=== PATIENT | female | born 1970 | race Caucasian/White ===

== ENCOUNTER 2019-01-21 14:55 | Inpatient (IN) | payer OTHER ==
--- NOTE | 2019-01-21 15:58 | ED ---
General Adult HPI - General Chief complaint: Arrhythmia/Palpitations Stated complaint: Palpitations Time Seen by Provider: 01/21/19 15:17 Source: EMS, RN notes reviewed Mode of arrival: EMS Limitations: no limitations - History of Present Illness Initial comments: Patient is a pleasant 48-year-old female presenting to the emergency Department with complaints of palpitations. Onset of symptoms was just prior to arrival. Patient felt her heart was racing. Patient has had some increased anxiety lately. Patient does have recent of family members. Patient states there may have been some mild associated dyspnea. EMS found patient to be in SVT and gave 6 mg of adenosine with conversion to sinus rhythm. Patient states she has been symptom-free since that time and remained symptom-free. Patient was symptom-free prior to onset of symptoms. - Related Data Home Medications Medication Instructions Recorded Confirmed Insulin Glargine,Hum.rec.anlog 15 unit SQ HS PRN 01/21/19 01/21/19 [Basaglar Kwikpen U-100] metFORMIN HCL 1,000 mg PO BID 01/21/19 01/21/19 Allergies Allergy/AdvReac Type Severity Reaction Status Date / Time No Known Allergies Allergy Verified 01/21/19 15:52 Review of Systems ROS Statement: Those systems with pertinent positive or pertinent negative responses have been documented in the HPI. ROS Other: All systems not noted in ROS Statement are negative. Constitutional: Denies: fever Eyes: Denies: eye pain ENT: Denies: ear pain Respiratory: Denies: cough Cardiovascular: Reports: palpitations. Denies: chest pain Endocrine: Denies: fatigue Gastrointestinal: Denies: abdominal pain Genitourinary: Denies: dysuria Musculoskeletal: Denies: back pain Skin: Denies: rash Neurological: Denies: weakness Past Medical History Past Medical History: Diabetes Mellitus, Hyperlipidemia History of Any Multi-Drug Resistant Organisms: MRSA Date of last positivie culture/infection: 2010 MDRO Source:: arm Past Surgical History: Section, Tubal Ligation Additional Past Surgical History / Comment(s): c/s x 3 Past Anesthesia/Blood Transfusion Reactions: No Reported Reaction Past Psychological History: No Psychological Hx Reported Smoking Status: Current every day smoker Past Alcohol Use History: None Reported Past Drug Use History: Marijuana - Past Family History Sister(s) Family Medical History: Cancer Father Family Medical History: Cancer General Exam Limitations: no limitations General appearance: alert, in no apparent distress Head exam: Present: atraumatic Eye exam: Present: normal appearance, PERRL ENT exam: Present: normal oropharynx Neck exam: Present: normal inspection Respiratory exam: Present: normal lung sounds bilaterally Cardiovascular Exam: Present: regular rate, normal rhythm, normal heart sounds. Absent: systolic murmur Expanded Peripheral pulses: 2+: Radial (R), Radial (L), Dorsalis Pedis (R), Dorsalis Pedis (L) GI/Abdominal exam: Present: soft. Absent: tenderness Extremities exam: Present: normal inspection. Absent: pedal edema, calf tenderness Neurological exam: Present: alert Psychiatric exam: Present: normal affect, normal mood Skin exam: Present: normal color Course Vital Signs 01/21/19 01/21/19 01/21/19 15:00 15:01 15:30 Temperature 98 F Pulse Rate 96 97 Respiratory 20 12 Rate Blood Pressure 116/79 116/79 116/79 O2 Sat by Pulse 95 97 Oximetry 01/21/19 01/21/19 01/21/19 16:00 16:30 17:00 Temperature Pulse Rate 89 86 84 Respiratory 8 L 16 14 Rate Blood Pressure 143/85 89/56 O2 Sat by Pulse 97 98 Oximetry - Reevaluation(s) Reevaluation #1: 01/21/19 16:14 Repeat EKG at 69 shows sinus rhythm at 87. [place] 162. QRS 140. QTc 436. QTc 524. Left axis. Right bundle branch block. No acute ST change. EKG Findings - EKG Comments: EKG Findings:: Normal sinus rhythm 96. IL 176. QRS 138. QT 414. QTC 523. Left axis. Right bundle-branch block. No acute ST change. Medical Decision Making - Medical Decision Making Patient reevaluated and resting comfortably in bed. Case was discussed with cardiology, Dr. Branch secondary to QTC prolongation. He does recommend admitting for observation and evaluation. Case was also discussed with Dr. Mullins, who will admit current for hospital call. - Lab Data Result diagrams: 01/21/19 15:18 01/21/19 15:18 Lab Results 01/21/19 01/21/19 01/21/19 Range/Units 15:18 15:18 15:18 WBC 10.4 (3.8-10.6) k/uL RBC 4.51 (3.80-5.40) m/uL Hgb 13.9 (11.4-16.0) gm/dL Hct 41.3 (34.0-46.0) % MCV 91.6 (80.0-100.0) fL MCH 30.9 (25.0-35.0) pg MCHC 33.7 (31.0-37.0) g/dL RDW 14.4 (11.5-15.5) % Plt Count 310 (150-450) k/uL Neutrophils % (Manual) 61 % Lymphocytes % (Manual) 32 % Monocytes % (Manual) 5 % Eosinophils % (Manual) 1 % Basophils % (Manual) 1 % Neutrophils # (Manual) 6.34 (1.3-7.7) k/uL Lymphocytes # (Manual) 3.33 (1.0-4.8) k/uL Monocytes # (Manual) 0.52 (0-1.0) k/uL Eosinophils # (Manual) 0.10 (0-0.7) k/uL Basophils # (Manual) 0.10 (0-0.2) k/uL Nucleated RBCs 0 (0-0) /100 WBC Manual Slide Review Performed PT 9.4 (9.0-12.0) sec INR 0.8 (<1.2) APTT 24.0 (22.0-30.0) sec Sodium 140 (137-145) mmol/L Potassium 4.2 (3.5-5.1) mmol/L Chloride 109 H (98-107) mmol/L Carbon Dioxide 21 L (22-30) mmol/L Anion Gap 10 mmol/L BUN 20 H (7-17) mg/dL Creatinine 0.65 (0.52-1.04) mg/dL Est GFR (CKD-EPI)AfAm >90 (>60 ml/min/1.73 sqM) Est GFR (CKD-EPI)NonAf >90 (>60 ml/min/1.73 sqM) Glucose 76 (74-99) mg/dL Calcium 8.7 (8.4-10.2) mg/dL Magnesium 1.9 (1.6-2.3) mg/dL Total Bilirubin 0.5 (0.2-1.3) mg/dL AST 45 H (14-36) U/L ALT 36 (9-52) U/L Alkaline Phosphatase 78 (38-126) U/L Creatine Kinase (30-135) U/L Troponin I (0.000-0.034) ng/mL Total Protein 6.2 L (6.3-8.2) g/dL Albumin 3.6 (3.5-5.0) g/dL TSH 1.550 (0.465-4.680) mIU/L Free T4 1.12 (0.78-2.19) ng/dL Free T3 pg/mL 3.6 (2.8-5.3) pg/ml 01/21/19 01/21/19 Range/Units 15:18 15:18 WBC (3.8-10.6) k/uL RBC (3.80-5.40) m/uL Hgb (11.4-16.0) gm/dL Hct (34.0-46.0) % MCV (80.0-100.0) fL MCH (25.0-35.0) pg MCHC (31.0-37.0) g/dL RDW (11.5-15.5) % Plt Count (150-450) k/uL Neutrophils % (Manual) % Lymphocytes % (Manual) % Monocytes % (Manual) % Eosinophils % (Manual) % Basophils % (Manual) % Neutrophils # (Manual) (1.3-7.7) k/uL Lymphocytes # (Manual) (1.0-4.8) k/uL Monocytes # (Manual) (0-1.0) k/uL Eosinophils # (Manual) (0-0.7) k/uL Basophils # (Manual) (0-0.2) k/uL Nucleated RBCs (0-0) /100 WBC Manual Slide Review PT (9.0-12.0) sec INR (<1.2) APTT (22.0-30.0) sec Sodium (137-145) mmol/L Potassium (3.5-5.1) mmol/L Chloride (98-107) mmol/L Carbon Dioxide (22-30) mmol/L Anion Gap mmol/L BUN (7-17) mg/dL Creatinine (0.52-1.04) mg/dL Est GFR (CKD-EPI)AfAm (>60 ml/min/1.73 sqM) Est GFR (CKD-EPI)NonAf (>60 ml/min/1.73 sqM) Glucose (74-99) mg/dL Calcium (8.4-10.2) mg/dL Magnesium (1.6-2.3) mg/dL Total Bilirubin (0.2-1.3) mg/dL AST (14-36) U/L ALT (9-52) U/L Alkaline Phosphatase (38-126) U/L Creatine Kinase 143 H (30-135) U/L Troponin I <0.012 (0.000-0.034) ng/mL Total Protein (6.3-8.2) g/dL Albumin (3.5-5.0) g/dL TSH (0.465-4.680) mIU/L Free T4 (0.78-2.19) ng/dL Free T3 pg/mL (2.8-5.3) pg/ml - Radiology Data Radiology results: image reviewed ( no acute process) Disposition Clinical Impression: Supraventricular tachycardia, QT prolongation Disposition: ADMITTED IP TO THIS HOSP Is patient prescribed a controlled substance at d/c from ED?: No Referrals: None,Stated [Primary Care Provider] - 1-2 days Decision Time: 17:26
[2019-01-21 16:12] LABS: HCT 41.3 % (34.0-46.0); HGB 13.9 gm/dL (11.4-16.0); MCH 30.9 pg (25.0-35.0); MCHC 33.7 g/dL (31.0-37.0); MCV 91.6 fL (80.0-100.0); Mean Platelet Volume 6.8; Platelet Count 310 k/uL (150-450); RBC 4.51 m/uL (3.80-5.40); RDW 14.4 % (11.5-15.5); WBC 10.4 k/uL (3.8-10.6)
--- NOTE | 2019-01-21 16:15 | XR ---
EXAMINATION TYPE: XR chest 1V portable DATE OF EXAM: 01/21/2019 COMPARISON: Chest x-ray December 16, 2013 HISTORY: Shortness of breath and tachycardia. TECHNIQUE: Single frontal view of the chest is obtained. FINDINGS: Low lung volumes are redemonstrated. There is no focal air space opacity, pleural effusion , or pneumothorax seen. The cardiac silhouette size remains enlarged. Multiple old displaced right l ateral rib fractures are redemonstrated. IMPRESSION: Cardiomegaly without new acute pulmonary process.
[2019-01-21 16:16] LABS: ALT 36 U/L (9-52); AST 45 U/L (14-36); African American GFR (CKD) >90 (>60 ml/min/1.73 sqM); Albumin 3.6 g/dL (3.5-5.0); Alkaline Phosphatase 78 U/L (38-126); Anion Gap 10 mmol/L; Blood Urea Nitrogen 20 mg/dL (7-17); Calcium 8.7 mg/dL (8.4-10.2); Carbon Dioxide 21 mmol/L (22-30); Chloride 109 mmol/L (98-107); Glucose 76 mg/dL (74-99); Magnesium 1.9 mg/dL (1.6-2.3); Potassium 4.2 mmol/L (3.5-5.1); Sodium 140 mmol/L (137-145); Total Bilirubin 0.5 mg/dL (0.2-1.3); Total Protein 6.2 g/dL (6.3-8.2)
[2019-01-21 16:19] LABS: INR 0.8 (<1.2); Prothrombin Time 9.4 sec (9.0-12.0)
[2019-01-21 16:26] LABS: Lymphocytes # (M) 3.33 k/uL (1.0-4.8); Monocytes # (M) 0.52 k/uL (0-1.0); Neutrophils % (M) 61 %; Nucleated Red Blood Cells 0 /100 WBC (0-0); Total Cells Counted 100
[2019-01-21 16:31] LABS: T4, Free (Free Thyroxine) 1.12 ng/dL (0.78-2.19)
[2019-01-21] MEDS ORDERED: NALOXONE 0.4 MG/ML 1 ML VIAL IV PRN (17:26)
[2019-01-21] MEDS ORDERED: ACETAMINOPHEN TAB 325 MG TAB PO PRN (18:13)
--- NOTE | 2019-01-21 18:19 | P.HPIM ---
History of Present Illness H&P Date: 01/21/19 Chief Complaint: Palpitations 40-year-old female with PMH of diabetes mellitus, hyperlipidemia presents to the ED for palpitations. Patient states that she was in a calm state of mind, getting ready for her son's birthday democrat when she had a sudden onset of palpitations. The palpitations lasted for 30 minutes until EMS could arrive. Patient was told that her heart rate was in the 200s and she was given adenosine 6 mg which converted her to sinus rhythm. Her palpitations was associated with some shortness of breath. Patient reports smoking 8 cigarettes daily for the past 30 years. Her smoking has increased to 1 pack of cigarettes daily recently due to some stressors. Patient reports drinking alcohol socially. Patient reports drinking 3 cups of coffee daily. Patient reports increased emotions and anxiety since the passing of her mother in December, followed by her [id number] 4 days later. Of note, patient reports some left-sided chest discomfort that has been ongoing for the past 2 weeks. Patient is unable to describe it effectively because it a twinge. Pain is not related to exertion. Pain is nonradiating. Patient also reports dizzy spells and blurry vision (2 episodes) has been ongoing for the past month. Episodes do not happen frequently or daily. Dizzy spells is not related to a change in position or associated with exertion. She denies any vertiginous symptoms. Patient denies any headaches, lower extremity edema, nausea or vomiting, fever or chills, cough, changes in urination or bowel habits. No changes in appetite or weight. In the ED, vital signs are within normal limits. CBC was unremarkable. Coagulation panel was negative. CMP showed a chloride of 109, bicarbonate of 21 and B1 of 20. AST was 45. Creatinine kinase was 143. TSH and free T4 was within normal limits. Troponin was less than 0.012, with EKG showing normal sinus rhythm with a QTC of 523. Patient is admitted for prolonged QTC with cardiology on consult. Review of Systems Pertinent positives and negatives as discussed in HPI, a complete review of systems was performed and all other systems are negative. Past Medical History Past Medical History: Diabetes Mellitus, Hyperlipidemia History of Any Multi-Drug Resistant Organisms: MRSA Date of last positivie culture/infection: 2010 MDRO Source:: arm Past Surgical History: Section, Tubal Ligation Additional Past Surgical History / Comment(s): c/s x 3 Past Anesthesia/Blood Transfusion Reactions: No Reported Reaction Past Psychological History: No Psychological Hx Reported Smoking Status: Current every day smoker Past Alcohol Use History: None Reported Past Drug Use History: Marijuana - Past Family History Sister(s) Family Medical History: Cancer Father Family Medical History: Cancer Medications and Allergies Home Medications Medication Instructions Recorded Confirmed Type Insulin Glargine,Hum.rec.anlog 15 unit SQ HS PRN 01/21/19 01/21/19 History [Basaglar Kwikpen U-100] metFORMIN HCL 1,000 mg PO BID 01/21/19 01/21/19 History Allergies Allergy/AdvReac Type Severity Reaction Status Date / Time No Known Allergies Allergy Verified 01/21/19 15:52 Physical Exam Vitals: Vital Signs Temp Pulse Resp BP Pulse Ox 01/21/19 17:30 85 16 114/75 98 01/21/19 17:00 84 14 89/56 98 01/21/19 16:30 86 16 143/85 97 01/21/19 16:00 89 8 L 01/21/19 15:30 97 12 116/79 01/21/19 15:01 116/79 97 01/21/19 15:00 98 F 96 20 116/79 95 Intake and Output 01/21/19 01/21/19 01/21/19 06:59 14:59 22:59 Other: Weight 104.326 kg General: [non toxic], [emotional and tearful], [appears at stated age] Derm: [warm], [dry] Head: [atraumatic], [normocephalic], [symmetric] Eyes: [EOMI], [no lid lag], [anicteric sclera] Mouth: [no lip lesion], [mucus membranes moist] Cardiovascular: [S1S2 reg], [no murmur], [positive DP pulse bilateral], Lungs: [CTA bilateral], [no rhonchi, no rales] , [no accessory muscle use] Abdominal: [soft], [ nontender to palpation], [no guarding], [no appreciable organomegaly] Ext: [no gross muscle atrophy], [no edema], [no contractures] Neuro: [ CN II-XI grossly intact], [no focal neuro deficits] Psych: [Alert], [oriented], [appropriate affect] Results CBC & Chem 7: 01/21/19 15:18 01/21/19 15:18 Labs: Abnormal Lab Results - Last 24 Hours (Table) 01/21/19 01/21/19 Range/Units 15:18 15:18 Chloride 109 H (98-107) mmol/L Carbon Dioxide 21 L (22-30) mmol/L BUN 20 H (7-17) mg/dL AST 45 H (14-36) U/L Creatine Kinase 143 H (30-135) U/L Total Protein 6.2 L (6.3-8.2) g/dL Assessment and Plan Assessment: Assessment and Plan SVT, converted with 6 mg adenosine, EKG now showing prolonged QTc of 523 Chest pain, rule out acute coronary syndrome Lightheadedness likely caused from above arrhythmia Diabetes mellitus Dyslipidemia TSH and free T4 is within normal limits. Potassium and magnesium within normal limits. Drinks 3 cups of coffee daily. Recently lost her mother and [id number], emotional. Plans: Keep potassium greater than 4 and magnesium greater than 2. Avoid QTc prolonging agents. Follow echocardiogram. Telemetry monitoring. Follow cardiology consultation. Plans to rule out ACS. Troponin less than 0.012 with EKG showing normal sinus rhythm and prolonged QTC of 523. Plans: Trend troponin/EKG to rule out ACS. Start aspirin and Lipitor. Has experienced 2 episodes lasting 5 minutes in the past month with blurry vision. Related to underlying arrhythmia? Plans: Start normal saline at 100 mL per hour. Follow orthostats. Telemetry monitoring. Follow echocardiogram. Point of care glucose 143. Plans: Insulin sliding scale. Regular Accu-Cheks. Hypoglycemic precautions. Plans: Start Lipitor. DVT prophylaxis: [SCD boots] Discussed with: [Patient] Anticipated discharge: [1-2 days] Anticipated discharge place: [Home] A total of [45] minutes was spent on the care of this complex patient more than 50% of the time was spent in counseling and care coordination. Patient names her Danial decision-maker indicates that she can't make decisions for herself. She reiterates wanting to remain full code at this time.
[2019-01-21] MEDS: HYDROcodone/APAP 5-325MG 1 EACH TAB PO PRN (18:35)
[2019-01-21 19:34] LABS: Appearance,Urine Clear (Clear); Bilirubin,Urine Negative (Negative); Blood,Urine Negative (Negative); Color,Urine Yellow; Glucose,Urine (UA) Negative (Negative); Ketones,Urine 1+ (Negative); Leukocyte Esterase,Urine Negative (Negative); Nitrite,Urine Negative (Negative); PH, Urine 5.5 (5.0-8.0); Protein,Urine Negative (Negative); Specific Gravity,Urine 1.021 (1.001-1.035); Urobilinogen,Urine <2.0 mg/dL (<2.0)
[2019-01-21 19:41] LABS: Amphetamine Screen,Urine Detected (NotDetected); Barbiturate Screen,Urine Not Detected (NotDetected); Benzodiazepines Screen,Urine Detected (NotDetected); Cocaine Screen,Urine Not Detected (NotDetected); Methadone Screen, Urine Not Detected (NotDetected); Opiate Screen,Urine Not Detected (NotDetected); Oxycodone Screen, Urine Detected (NotDetected); Phencyclidine Screen,Urine Not Detected (NotDetected); Tricyclic Antidepressant,Urine Not Detected (NotDetected); Urn Cannabinoid Scrn Detected (NotDetected)
[2019-01-21] MEDS: SODIUM CHLORIDE 0.9% 1,000 ML IV SCH (20:09)
[2019-01-21 20:16] LABS: Glucose,Whole Blood 131 mg/dL (75-99)
[2019-01-21] MEDS: ATORVASTATIN 40 MG TAB PO SCH (20:18)
[2019-01-21] MEDS: MELATONIN 3 MG TABLET PO SCH (23:16)
[2019-01-22] MEDS ORDERED: HEPARIN SODIUM,PORCINE 5,000 UNIT/ML 1 ML VIAL IV ONE (00:20)
[2019-01-22] MEDS ORDERED: HEPARIN SODIUM,PORCINE 5,000 UNIT/ML 1 ML VIAL IV PRN (00:20)
[2019-01-22] MEDS ORDERED: HEPARIN SOD,PORK IN 0.45% NACL 25,000 UNIT in 0.45% NACL 1 250ML.BAG IV SCH (00:30)
[2019-01-22 00:55] LABS: INR 0.9 (<1.2); Partial Thromboplastin Time 24.6 sec (22.0-30.0); Prothrombin Time 9.4 sec (9.0-12.0)
[2019-01-22 01:23] LABS: HCT 39.2 % (34.0-46.0); HGB 13.2 gm/dL (11.4-16.0); MCH 30.8 pg (25.0-35.0); MCHC 33.6 g/dL (31.0-37.0); MCV 91.5 fL (80.0-100.0); Mean Platelet Volume 6.8; Platelet Count 274 k/uL (150-450); RBC 4.28 m/uL (3.80-5.40); RDW 14.6 % (11.5-15.5); WBC 7.6 k/uL (3.8-10.6)
[2019-01-22 02:05] LABS: Lymphocytes # (M) 2.28 k/uL (1.0-4.8); Monocytes # (M) 0.38 k/uL (0-1.0); Neutrophils % (M) 61 %; Nucleated Red Blood Cells 0 /100 WBC (0-0); Total Cells Counted 100
[2019-01-22 03:43] LABS: HCT 39.9 % (34.0-46.0); HGB 13.4 gm/dL (11.4-16.0); MCH 31.1 pg (25.0-35.0); MCHC 33.6 g/dL (31.0-37.0); MCV 92.6 fL (80.0-100.0); Mean Platelet Volume 6.8; Platelet Count 258 k/uL (150-450); RBC 4.31 m/uL (3.80-5.40); WBC 7.1 k/uL (3.8-10.6)
[2019-01-22 03:57] LABS: African American GFR (CKD) >90 (>60 ml/min/1.73 sqM); Anion Gap 5 mmol/L; Blood Urea Nitrogen 18 mg/dL (7-17); Calcium 8.5 mg/dL (8.4-10.2); Carbon Dioxide 27 mmol/L (22-30); Chloride 108 mmol/L (98-107); Glucose 103 mg/dL (74-99); Potassium 4.2 mmol/L (3.5-5.1); Sodium 140 mmol/L (137-145)
[2019-01-22 04:06] LABS: Band Neutrophils % 2 %; Eosinophils # (M) 0.07 k/uL (0-0.7); Lymphocytes # (M) 2.91 k/uL (1.0-4.8); Monocytes # (M) 0.28 k/uL (0-1.0); Neutrophils % (M) 52 %; Nucleated Red Blood Cells 0 /100 WBC (0-0); Total Cells Counted 100
[2019-01-22 04:07] LABS: Reactive Lymphocytes Present
[2019-01-22 07:07] LABS: Glucose,Whole Blood 97 mg/dL (75-99)
[2019-01-22] MEDS: INSULIN ASPART (NovoLOG) 100 UNIT/ML VIAL SQ SCH ×3 (07:41→18:00)
[2019-01-22] MEDS ORDERED: ASPIRIN 325 MG TAB PO STA (08:42)
[2019-01-22] MEDS ORDERED: SODIUM CHLORIDE 0.9% 1,000 ML in EMPTY BAG 1 BAG IV ONE (08:42)
[2019-01-22] MEDS ORDERED: NITROGLYCERIN SL TABS 0.4 MG TAB SUBLINGUAL PRN (08:42)
[2019-01-22] MEDS ORDERED: ALPRAZolam 0.25 MG TAB PO PRN (08:42)
[2019-01-22] MEDS ORDERED: ALPRAZolam 0.5 MG TAB PO PRN (08:42)
[2019-01-22] MEDS ORDERED: ASPIRIN 81 MG PO SCH (09:00)
[2019-01-22] MEDS: HYDROcodone/APAP 5-325MG 1 EACH TAB PO PRN ×3 (09:07→20:39)
--- NOTE | 2019-01-22 09:47 | P.CRDCN ---
History of Present Illness History of present illness: This is a pleasant 48-year-old female past medical history significant for diabetes mellitus and chronic nicotine dependence. She denies history of coronary artery disease, hypertension and dyslipidemia. We have been asked to see the patient in consultation secondary to SVT. The patient states she has been under an extreme amount of stress in the previous 2 weeks with the of her mother and [id number]. She is also going through a divorce. Yesterday she was sitting down when out of the blue acutely she felt extremely short of breath associated with her heart racing radiating up into the base of her neck as well as a pressure sensation in the chest. This is not related to activity or exertion and occurred at rest. He symptoms persisted for approximately 10 m inutes and seemed to be getting worse so EMS was called. Upon EMS arrival she was noted to be in supraventricular tachycardia with a heart rate in the 199. 6 mg of adenosine was administered. Upon arrival to the emergency department EKG obtained revealed sinus mechanism, left axis deviation, right bundle branch block with a heart rate of 96. Chest x-ray is negative for an acute cardiopulmonary process with evidence of cardiomegaly. Laboratory data reviewed, CBC unremarkable, initial troponin was negative second was 0.084, third was 0.069, TSH 1.55, magnesium 2.0, potassium 4.2, creatinine 0.64 with a GFR greater than 90. She currently takes no daily cardiac medications. She has had no further symptoms of chest pressure, shortness of breath or palpitations since admission. Telemetry tracings reviewed and reveal sinus mechanism. No further SVT. At the time of my exam: CONSTITUTIONAL: Denies fever. Denies chills. EYES: Denies blurred vision. Denies vision changes. Denies eye pain. EARS, NOSE, MOUTH & THROAT: Denies headache. Denies sore throat. Denies ear pain. CARDIOVASCULAR: Denies chest pain. Denies shortness of breath. Denies orthopnea. Denies PND. Denies palpitations. RESPIRATORY: Denies cough. GASTROINTESTINAL: Denies abdominal pain. Denies diarrhea. Denies constipation. Denies nausea. Denies vomiting. MUSCULOSKELETAL: Denies myalgias. INTEGUMENTARY: Denies pruitis. Denies rash. NEUROLOGIC: Denies numbness. Denies tingling. Denies weakness. PSYCHIATRIC: Denies anxiety. Denies depression. ENDOCRINE: Denies fatigue. Denies weight change. Denies polydipsia. Denies polyurina. GENITOURINARY: Denies burning, hematuria or urgency with micturation. HEMATOLOGIC: Denies history of anemia. Denies bleeding. Blood pressure 138/82 heart rate 78 afebrile maintaining oxygen saturation on room air GENERAL: This is a 48-year-old female in no apparent distress at the time of my examination. HEENT: Head is atraumatic, normocephalic. Pupils are equal, round. Sclerae anicteric. Conjunctivae are clear. Mucous membranes of the mouth are moist. Neck is supple. There is no jugular venous distention. No carotid bruit is heard. LUNGS: Clear to auscultation no wheezes, rales or rhonchi. No chest wall tenderness is noted on palpation or with deep breathing. HEART: Regular rate and rhythm without murmurs, rubs or gallops. S1 and S2 heard. ABDOMEN: Soft, nontender. Bowel sounds are heard. No organomegaly noted. EXTREMITIES: No evidence of peripheral edema and no calf tenderness noted. VASCULAR: Radial and dorsalis pedis pulses palpated, no evidence of clubbing. NEUROLOGIC: Patient is awake, alert and oriented x3. ASSESSMENT Supraventricular tachycardia Troponin leak, unsure if this is related to underlying coronary artery disease or SVT Diabetes mellitus Chronic nicotine dependence PLAN Given the patient's history of diabetes and chronic nicotine dependence recommend proceeding with cardiac catheterization to assess for underlying coronary artery disease. I have discussed the risks, benefits and alternative therapies for the above-mentioned procedure and for both sedation/analgesia as well as necessary blood product administration, if indicated, as they pertain to this patient. The patient has indicated understanding and acceptance of the r isks and procedures discussed. Questions have been answered appropriately and she is agreeable to move forward with the above-stated procedure. Obtain 2-D echocardiogram and Doppler study to assess cardiac structure and function. Initiate atorvastatin 40 mg daily. Further recommendations to follow based upon clinical course. Nurse Practitioner note has been reviewed, I agree with a documented findings and plan of care. Patient was seen and examined. Past Medical History Past Medical History: Diabetes Mellitus, Hyperlipidemia History of Any Multi-Drug Resistant Organisms: MRSA Date of last positivie culture/infection: 2010 MDRO Source:: arm Past Surgical History: Section, Tubal Ligation Additional Past Surgical History / Comment(s): c/s x 3 Past Anesthesia/Blood Transfusion Reactions: No Reported Reaction Past Psychological History: No Psychological Hx Reported Smoking Status: Current every day smoker Past Alcohol Use History: None Reported Past Drug Use History: Marijuana - Past Family History Sister(s) Family Medical History: Cancer Father Family Medical History: Cancer Medications and Allergies Home Medications Medication Instructions Recorded Confirmed Type Insulin Glargine,Hum.rec.anlog 15 unit SQ HS PRN 01/21/19 01/21/19 History [Emilie Denny U-100] metFORMIN HCL 1,000 mg PO BID 01/21/19 01/21/19 History Allergies Allergy/AdvReac Type Severity Reaction Status Date / Time No Known Allergies Allergy Verified 01/21/19 15:52 Physical Exam Vitals: Vital Signs Temp Pulse Pulse Pulse Pulse Pulse Resp 01/22/19 04:00 98.2 F 69 18 01/22/19 03:49 63 18 01/22/19 00:00 75 18 01/21/19 23:34 98.2 F 75 18 01/21/19 20:00 82 93 84 77 18 01/21/19 19:42 97.7 F 82 93 84 18 01/21/19 18:00 97.6 F 77 16 01/21/19 17:30 85 16 01/21/19 17:00 84 14 01/21/19 16:30 86 16 01/21/19 16:00 89 8 L 01/21/19 15:30 97 12 01/21/19 15:01 01/21/19 15:00 98 F 96 20 BP BP BP BP BP BP Pulse Ox 01/22/19 04:00 132/76 96 01/22/19 03:49 01/22/19 00:00 01/21/19 23:34 110/65 97 01/21/19 20:00 01/21/19 19:42 127/84 134/80 115/76 97 01/21/19 18:00 112/78 99 01/21/19 17:30 114/75 98 01/21/19 17:00 89/56 98 01/21/19 16:30 143/85 97 01/21/19 16:00 01/21/19 15:30 116/79 01/21/19 15:01 116/79 97 01/21/19 15:00 116/79 95 Intake and Output 01/21/19 01/22/19 01/22/19 22:59 06:59 14:59 Intake Total 400 Balance 400 Intake: Intake, IV Titration 400 Amount Sodium Chloride 0.9% 1, 400 000 ml @ 80 mls/hr IV . [id number] [facility] Rx#:[id number] Other: # Voids 1 2 Weight 104.326 kg Results 01/22/19 03:28 01/22/19 03:28 Cardiac Enzymes 01/21/19 01/21/19 01/21/19 Range/Units 15:18 15:18 21:17 AST 45 H (14-36) U/L Troponin I <0.012 0.084 H* (0.000-0.034) ng/mL 01/22/19 Range/Units 03:28 AST (14-36) U/L Troponin I 0.069 H* (0.000-0.034) ng/mL Coagulation 01/21/19 01/22/19 Range/Units 15:18 00:33 PT 9.4 9.4 (9.0-12.0) sec APTT 24.0 24.6 (22.0-30.0) sec CBC 01/21/19 01/22/19 01/22/19 Range/Units 15:18 00:33 03:28 WBC 10.4 7.6 7.1 (3.8-10.6) k/uL RBC 4.51 4.28 4.31 (3.80-5.40) m/uL Hgb 13.9 13.2 13.4 (11.4-16.0) gm/dL Hct 41.3 39.2 39.9 (34.0-46.0) % Plt Count 310 274 258 (150-450) k/uL Comprehensive Metabolic Panel 01/21/19 01/22/19 Range/Units 15:18 03:28 Sodium 140 140 (137-145) mmol/L Potassium 4.2 4.2 (3.5-5.1) mmol/L Chloride 109 H 108 H (98-107) mmol/L Carbon Dioxide 21 L 27 (22-30) mmol/L BUN 20 H 18 H (7-17) mg/dL Creatinine 0.65 0.64 (0.52-1.04) mg/dL Glucose 76 103 H (74-99) mg/dL Calcium 8.7 8.5 (8.4-10.2) mg/dL AST 45 H (14-36) U/L ALT 36 (9-52) U/L Alkaline Phosphatase 78 (38-126) U/L Total Protein 6.2 L (6.3-8.2) g/dL Albumin 3.6 (3.5-5.0) g/dL Current Medications Generic Name Dose Route Start Last Admin Trade Name Freq PRN Reason Stop Dose Admin Acetaminophen 650 mg 01/21/19 18:13 Tylenol Tab PO Q6HR PRN Mild Pain or Fever > 100.5 Hydrocodone Bitart/Acetaminophen 1 each 01/21/19 18:13 01/21/19 18:35 [place] 5-325 PO 1 each Q4HR PRN Administration Moderate Pain Aspirin 81 mg 01/22/19 09:00 Aspirin PO DAILY [facility] Atorvastatin Calcium 40 mg 01/21/19 21:00 01/21/19 20:18 Lipitor PO 40 mg HS GRICELDA Administration Heparin Sodium (Porcine) 0 unit 01/22/19 00:20 Heparin IV PER PROTOCOL PRN Low PTT Protocol Sodium Chloride 1,000 mls @ 80 mls/hr 01/21/19 17:30 01/21/19 20:09 Saline 0.9% IV Not Given .[id number] GRICELDA Heparin Sodium/Sodium Chloride 250 mls @ 9.389 mls/hr 01/22/19 00:30 01/22/19 01:07 25,000 unit/ Sodium Chloride IV 9 units/kg/hr .Q24H GRICELDA 9.389 mls/hr Administration Protocol 9 UNITS/KG/HR Insulin Aspart 0 unit 01/22/19 07:30 01/22/19 07:41 Novolog SQ Not Given AC-TID [facility] Protocol Melatonin 6 mg 01/21/19 21:30 01/21/19 23:16 Melatonin PO 6 mg HS GRICELDA Administration Naloxone HCl 0.2 mg 01/21/19 17:26 Narcan IV Q2M PRN Opioid Reversal Intake and Output 01/21/19 01/22/19 01/22/19 22:59 06:59 14:59 Intake Total 400 Balance 400 Intake: Intake, IV Titration 400 Amount Sodium Chloride 0.9% 1, 400 000 ml @ 80 mls/hr IV . [id number] [facility] Rx#:[id number] Other: # Voids 1 2 Weight 104.326 kg 01/22/19 03:28 01/22/19 03:28
[2019-01-22 10:14] LABS: Cholesterol 186 mg/dL (<200); HDL Cholesterol 43 mg/dL (40-60); LDL Cholesterol,Calculated 120 mg/dL (0-99); Triglycerides 113 mg/dL (<150)
--- NOTE | 2019-01-22 10:56 | ECHOF ---
Referral Reason:QtC MEASUREMENTS -------- HEIGHT: 170.2 cm WEIGHT: 104.3 kg BP: 132/76 IVSd: 1.3 cm (0.6 - 1.1) LVIDd: 4.9 cm (3.9 - 5.3) LVPWd: 1.4 cm (0.6 - 1.1) IVSs: 1.7 cm LVIDs: 3.6 cm LVPWs: 2.1 cm LAESV Index (A-L): 44.51 ml/m Ao Diam: 2.7 cm (2.0 - 3.7) AV Cusp: 2.0 cm (1.5 - 2.6) LA Diam: 4.7 cm (2.7 - 3.8) EPSS: 1.3 cm MV E Leland: 1.02 m/s MV DecT: 297 ms MV A Leland: 1.09 m/s MV E/A Ratio: 0.94 AV maxP.37 mmHg AV meanP.59 mmHg MV EF SLOPE: 102.94 mm/s (70 - 150) MV EXCURSION: 1.78 cm (> 18.000) FINDINGS -------- Sinus rhythm. This was a technically adequate study. The left ventricular size is normal. There is mild concentric left ventricular hypertrophy. Overa ll left ventricular systolic function is mild-moderately impaired with, an EF between 40 - 45 %. Mi tral Doppler inflow pattern suggests diastolic filling abnormality. Apical anterior LV wall motion is hypokinetic. Apical lateral LV wall motion is hypokinetic. The RV was not well visualized. Left atrium is severely dilated by volume. The right atrium was not well visualized. Interatrial and interventricular septum intact. Mobile interatrial septum. There is moderate aortic valve sclerosis without stenosis. There is no evidence of aortic regurgita tion. The mitral valve leaflets are mildly thickened. Moderate mitral regurgitation is present , with a M VA of 2.7cm (by PHT) Trace tricuspid regurgitation present. Unable to estimate RVSP due to inadequate TR jet spectral do ppler profile. There is no pulmonic regurgitation present. The aortic root size is normal. IVC not well visualized There is no pericardial effusion. CONCLUSIONS -------- 1. Sinus rhythm. 2. This was a technically adequate study. 3. The left ventricular size is normal. 4. There is mild concentric left ventricular hypertrophy. 5. Overall left ventricular systolic function is mild-moderately impaired with, an EF between 40 - 45 %. 6. Mitral Doppler inflow pattern suggests diastolic filling abnormality. 7. Apical anterior LV wall motion is hypokinetic. 8. Apical lateral LV wall motion is hypokinetic. 9. The RV was not well visualized. 10. Left atrium is severely dilated by volume. 11. Mobile interatrial septum. 12. There is moderate aortic valve sclerosis without stenosis. 13. There is no evidence of aortic regurgitation. 14. The mitral valve leaflets are mildly thickened. 15. Moderate mitral regurgitation is present. 16. , with a MVA of 2.7cm (by PHT) 17. Trace tricuspid regurgitation present. 18. Unable to estimate RVSP due to inadequate TR jet spectral doppler profile. 19. There is no pulmonic regurgitation present. 20. The aortic root size is normal. 21. IVC not well visualized 22. There is no pericardial effusion. MARRIAGE PERFORMER: Rose Yu RDCS
[2019-01-22] MEDS ORDERED: SODIUM CHLORIDE 0.9% 1,000 ML IV ONE (10:58)
[2019-01-22] MEDS ORDERED: fentaNYL (PF) 50 MCG/ML 2 ML AMP IVP ONE (11:17)
[2019-01-22] MEDS ORDERED: LIDOCAINE 1%-EPI 1:100,000 20 ML VIAL SQ ONE ×2 (11:20)
[2019-01-22] MEDS ORDERED: MIDAZOLAM (PF) 2 MG/2 ML VIAL IVP ONE (11:20)
[2019-01-22] MEDS ORDERED: VERAPAMIL SYRINGE (5 MG/10 ML) INTRAARTER ONE (11:22)
[2019-01-22] MEDS ORDERED: HEPARIN SODIUM 1,000 UN/ML (10ML VL) IV ONE (11:30)
[2019-01-22] MEDS ORDERED: IOPAMIDOL-370 100ML BTL INJ ONE (11:37)
[2019-01-22] MEDS ORDERED: RX INFO: IV CONTRAST WAS GIVEN 1 EACH MISC MISCELLANE PRN (11:42)
[2019-01-22] MEDS ORDERED: SODIUM CHLORIDE 0.9% 1,000 ML IV SCH (11:45)
[2019-01-22 14:38] VITALS: BMI 36.0
[2019-01-22] MEDS ORDERED: MORPHINE SULFATE 2 MG/ML SYRINGE IVP STA (15:46)
[2019-01-22] MEDS ORDERED: MORPHINE SULFATE 2 MG/ML SYRINGE IVP PRN (15:46)
--- NOTE | 2019-01-22 15:51 | P.PN ---
Subjective Progress Note Date: 01/22/19 Principal diagnosis: Prolonged QTC Patient was seen and examined. No acute events overnight. Patient reports, chronic in nature, due to the uncomfortable beds at this hospital. She denies any chest pain, shortness of breath or palpitations. No nausea or vomiting. No fever or chills. Objective - Vital Signs Vital signs: Vital Signs Temp 98 F 01/22/19 08:00 Pulse 78 01/22/19 08:00 Resp 17 01/22/19 08:00 BP 138/82 01/22/19 08:00 Pulse Ox 97 01/22/19 08:00 Intake & Output 01/21/19 01/22/19 01/22/19 18:59 06:59 18:59 Intake Total 400 150 Balance 400 150 Weight 104.326 kg 104.326 kg Intake: IV 150 Intake, IV Titration 400 Amount Sodium Chloride 0.9% 1, 400 000 ml @ 80 mls/hr IV . [id number] [facility] Rx#:[id number] Other: # Voids 2 1 - Exam General: [non toxic], [emotional and tearful], [appears at stated age] Derm: [warm], [dry] Head: [atraumatic], [normocephalic], [symmetric] Eyes: [EOMI], [no lid lag], [anicteric sclera] Mouth: [no lip lesion], [mucus membranes moist] Cardiovascular: [S1S2 reg], [no murmur], [positive DP pulse bilateral], Lungs: [CTA bilateral], [no rhonchi, no rales] , [no accessory muscle use] Abdominal: [soft], [ nontender to palpation], [no guarding], [no appreciable organomegaly] Ext: [no gross muscle atrophy], [no edema], [no contractures] Neuro: [no focal neuro deficits] Psych: [Alert], [oriented], [appropriate affect] - Labs CBC & Chem 7: 01/22/19 03:28 01/22/19 03:28 Labs: Abnormal Lab Results - Last 24 Hours (Table) 01/21/19 01/21/19 01/21/19 Range/Units 15:18 15:18 18:30 Chloride 109 H (98-107) mmol/L Carbon Dioxide 21 L (22-30) mmol/L BUN 20 H (7-17) mg/dL Glucose (74-99) mg/dL POC Glucose (mg/dL) (75-99) mg/dL AST 45 H (14-36) U/L Creatine Kinase 143 H (30-135) U/L Troponin I (0.000-0.034) ng/mL Total Protein 6.2 L (6.3-8.2) g/dL LDL Cholesterol, Calc (0-99) mg/dL Urine Ketones 1+ H (Negative) Ur Oxycodone Screen Detected H (NotDetected) Ur Amphetamines Screen Detected H (NotDetected) U Benzodiazepines Scrn Detected H (NotDetected) U Marijuana (THC) Screen Detected H (NotDetected) 01/21/19 01/21/19 01/22/19 Range/Units 20:01 21:17 03:28 Chloride 108 H (98-107) mmol/L Carbon Dioxide (22-30) mmol/L BUN 18 H (7-17) mg/dL Glucose 103 H (74-99) mg/dL POC Glucose (mg/dL) 131 H (75-99) mg/dL AST (14-36) U/L Creatine Kinase (30-135) U/L Troponin I 0.084 H* (0.000-0.034) ng/mL Total Protein (6.3-8.2) g/dL LDL Cholesterol, Calc (0-99) mg/dL Urine Ketones (Negative) Ur Oxycodone Screen (NotDetected) Ur Amphetamines Screen (NotDetected) U Benzodiazepines Scrn (NotDetected) U Marijuana (THC) Screen (NotDetected) 01/22/19 01/22/19 Range/Units 03:28 03:28 Chloride (98-107) mmol/L Carbon Dioxide (22-30) mmol/L BUN (7-17) mg/dL Glucose (74-99) mg/dL POC Glucose (mg/dL) (75-99) mg/dL AST (14-36) U/L Creatine Kinase (30-135) U/L Troponin I 0.069 H* (0.000-0.034) ng/mL Total Protein (6.3-8.2) g/dL LDL Cholesterol, Calc 120 H (0-99) mg/dL Urine Ketones (Negative) Ur Oxycodone Screen (NotDetected) Ur Amphetamines Screen (NotDetected) U Benzodiazepines Scrn (NotDetected) U Marijuana (THC) Screen (NotDetected) Assessment and Plan Assessment: Assessment and Plan SVT, converted with 6 mg adenosine, EKG now showing prolonged QTc of 523 and 524 Chest pain, with troponin elevation Lightheadedness likely caused from above arrhythmia Diabetes mellitus Dyslipidemia TSH and free T4 is within normal limits. Potassium and magnesium within normal limits. Drinks 3 cups of coffee daily. Recently lost her mother and [id number], emotional. Echocardiogram shows EF 40-45% with hypokinetic wall motion. Cardiac catheterization performed, results are pending. Plans: Keep potassium greater than 4 and magnesium greater than 2. Avoid QTc prolonging agents. Telemetry monitoring. Follow cardiology consultation. Plans to rule out ACS. Troponin less than 0.012, 0.084, 0.069 with EKG showing normal sinus rhythm and prolonged QTC of 523. Demand ischemia versus an NSTEMI. Plans: Follow cardiac catheterization. Start aspirin and Lipitor. Has experienced 2 episodes lasting 5 minutes in the past month with blurry vision. Related to underlying arrhythmia? Orthostats negative. Plans: Continue normal saline at 100 mL/h. Blurry vision resolved. Point of care glucose 120. Plans: Insulin sliding scale. Regular Accu-Cheks. Hypoglycemic precautions. Plans: Start Lipitor. [Plans to observe the patient for 1 more day. Likely DC tomorrow.]
[2019-01-22 17:17] LABS: Glucose,Whole Blood 138 mg/dL (75-99)
[2019-01-22] MEDS: METOPROLOL TARTRATE 25 MG TAB PO SCH ×2 (17:32→20:39)
[2019-01-22] MEDS: SODIUM CHLORIDE 0.9% 1,000 ML IV SCH (18:00)
--- NOTE | 2019-01-22 19:23 | CC ---
CARDIAC CATHETERIZATION REPORT Mrs. Lopez is a 48-year-old female with known history of diabetes and hyperlipidemia who presented with episode of palpitation and chest discomfort, was noted to be in SVT that was subsequently converted to sinus mechanism with adenosine. She had mild troponin elevation and her echocardiogram revealed mild apical lateral wall hypokinesis. In view of that, recommendation was made regarding cardiac catheterization. The procedure as well as risks and complications were discussed with the patient who is in full understanding and agreement. DESCRIPTION OF PROCEDURE: Patient was brought to paint laboratory technician in a fasting semi-sedated state after receiving fentanyl and Benadryl and achieving moderate conscious sedated state. Using Xylocaine anesthesia and Seldinger technique, a 6-[place]ander sheath was introduced in the right radial artery. Selective right and left coronary angiography were performed using 5- [place] 3 and half bend right and left Sarah catheter. Multiple views of the coronary arteries including hemiaxial views were obtained. Following that, a 5-[place] tight pigtail catheter was introduced in the left ventricle and a 30 degree BARON view of the left ventricle was obtained. Following that, the catheter and sheaths were removed. Hemostasis was obtained with deployment of TR band. There was no immediate complication. Patient was returned to her room in stable condition. Of note, the patient received 5000 units of intravenous heparin as well as intra-arterial verapamil. FINDINGS: Left main: This is a large-sized vessel, short, bifurcating into left circumflex, left anterior descending artery. Left main coronary artery has no evidence of high-grade stenosis. Left anterior descending artery: This is a large-sized vessel, tapers down the distal third, giving rise to a large diagonal branch. Left anterior descending artery as well as branches have no evidence of obstructive coronary artery disease. Left circumflex: This is a large nondominant vessel giving rise to 2 obtuse marginal branches. The left circumflex as well as branches have no evidence of obstructive coronary artery disease. RIGHT CORONARY ARTERY: This is a large dominant vessel, giving rise distally to PDA and posterolateral segment and branches. The right PDA reaches toward the inferoapical wall. The right coronary artery as well as branches have no evidence of obstructive coronary artery disease. LEFT VENTRICULOGRAM: Left ventriculogram is performed in 30 degree BARON view and revealed mild anteroapical hypokinesis. The ejection fraction is estimated at 45%-50%. There was no significant mitral regurgitation. HEMODYNAMICS: There was no gradient across the aortic valve. The left ventricular end-diastolic pressure was 14 to 16 mmHg. CONCLUSION: 1. Normal coronary arteries. 2. Mildly impaired left ventricular systolic function. RECOMMENDATION: In view of findings and anatomy, I have recommend continued medical therapy. It is possible the patient is presenting with stress-induced cardiomyopathy with an episode of SVT. Maximizing medical therapy will be initiated and depending on her progress, further recommendations will be made. Those findings were discussed with the patient and she was in full understanding and agreement. Duration of procedure is: 16 minutes. VIDAL / IJN: [id number] /
[2019-01-22] MEDS: LISINOPRIL 2.5 MG TAB PO SCH (20:39)
[2019-01-22] MEDS: ATORVASTATIN 40 MG TAB PO SCH (20:40)
[2019-01-22 21:56] LABS: Glucose,Whole Blood 165 mg/dL (75-99)
[2019-01-22] MEDS: MELATONIN 3 MG TABLET PO SCH (22:11)
[2019-01-23] MEDS: HYDROcodone/APAP 5-325MG 1 EACH TAB PO PRN ×3 (04:45→13:15)
[2019-01-23 06:34] LABS: African American GFR (CKD) >90 (>60 ml/min/1.73 sqM); Anion Gap 7 mmol/L; Blood Urea Nitrogen 11 mg/dL (7-17); Calcium 8.9 mg/dL (8.4-10.2); Carbon Dioxide 25 mmol/L (22-30); Chloride 106 mmol/L (98-107); Glucose 139 mg/dL (74-99); Potassium 4.3 mmol/L (3.5-5.1); Sodium 138 mmol/L (137-145)
[2019-01-23] MEDS: INSULIN ASPART (NovoLOG) 100 UNIT/ML VIAL SQ SCH ×2 (07:03→12:38)
[2019-01-23 07:05] LABS: Glucose,Whole Blood 158 mg/dL (75-99)
[2019-01-23 08:15] VITALS: RESP 16; TEMP 98.7
[2019-01-23] MEDS: METOPROLOL TARTRATE 25 MG TAB PO SCH (08:19)
[2019-01-23] MEDS: LISINOPRIL 2.5 MG TAB PO SCH (08:19)
[2019-01-23] MEDS ORDERED: ASPIRIN 81 MG PO SCH (09:00)
[2019-01-23 11:23] VITALS: BP 123/65; PULSE 69
--- NOTE | 2019-01-23 11:52 | P.DS ---
Providers Date of admission: 01/22/19 10:52 Expected date of discharge: 01/23/19 Attending physician: Augustine Randolph MD Consults: 01/21/19 17:27 Consult Physician Urgent Consulting Provider: Mohinder Vang Consult Reason/Comments: SVT, QTC prolongation Do you want consulting provider notified?: Already Contacted Primary care physician: Stated None Hospital Course: 40-year-old female with PMH of diabetes mellitus, hyperlipidemia presents to the ED for palpitations. Patient states that she was in a calm state of mind, getting ready for her son's birthday democrat when she had a sudden onset of palpitations. The palpitations lasted for 30 minutes until EMS could arrive. Patient was told that she was in SVT and her heart rate was in the 200s and she was given adenosine 6 mg which converted her to sinus rhythm. Patient reports smoking 8 cigarettes daily for the past 30 years. Her smoking has increased to 1 pack of cigarettes daily recently due to some stressors. Patient reports drinking alcohol socially. Patient reports drinking 3 cups of coffee daily. Patient reports increased emotions and anxiety since the passing of her mother in December, followed by her [id number] 4 days later. Patient had also reported that the symptoms of chest pain and lightheadedness associated with blurry vision that had occurred a couple of times in the past month. In the ED, vital signs are within normal limits. CBC was unremarkable. Coagulation panel was negative. CMP showed a chloride of 109, bicarbonate of 21 and B1 of 20. AST was 45. Creatinine kinase was 143. TSH and free T4 was within normal limits. Troponin was less than 0.012, with EKG showing normal sinus rhythm with a QTC of 523 and 524 on repeat. Patient is admitted for prolonged QTC with cardiology on consult. With regard to her chest pain, plan was to rule out acute coronary syndrome. Initial troponin was less than 0.012 with EKG showing normal sinus rhythm and prolonged QTC of 523 and 524 on repeat. Troponins trended up to 0.084 and 0.069. The elevated troponins was thought to be demand ischemia versus non-ST elevation OR. Cardiology was consulted and recommended echocardiogram. E chocardiogram showed EF 40-45% with hypokinetic wall motion. Cardiology recommended cardiac catheterization which showed normal coronaries with impaired EF of 45-50%, possibly stress-induced cardiomyopathy. Patient was then started on aspirin, Lipitor and metoprolol. With regard to her lightheadedness, orthostats was obtained and was negative. She was hydrated with normal saline at 100 mL/h. She had no further symptoms of chest pain or lightheadedness during her hospitalization. Patient was seen and examined. No acute events overnight. No dizziness, lightheadedness or blurry vision. No chest pain or palpitations. Able to shower without any difficulties this morning. Looking forward to going home. General: [non toxic], [no distress], [appears at stated age] Derm: [warm], [dry] Head: [atraumatic], [normocephalic], [symmetric] Eyes: [EOMI], [no lid lag], [anicteric sclera] Mouth: [no lip lesion], [mucus membranes moist] Cardiovascular: [S1S2 reg], [no murmur], [positive DP pulse bilateral], Lungs: [CTA bilateral], [no rhonchi, no rales] , [no accessory muscle use] Abdominal: [soft], [ nontender to palpation], [no guarding], [no appreciable organomegaly] Ext: [no gross muscle atrophy], [no edema], [no contractures] Neuro: [no focal neuro deficits] Psych: [Alert], [oriented], [appropriate affect] Assessment and Plan SVT, converted with 6 mg adenosine, EKG now showing prolonged QTc of 523 and 524 Heart failure reduced ejection fraction of 40-45% Chest pain, with troponin elevation Diabetes mellitus Dyslipidemia Resolved: Lightheadedness TSH and free T4 is within normal limits. Potassium and magnesium within normal limits. Drinks 3 cups of coffee daily. Recently lost her mother and [id number], emotional. Echocardiogram shows EF 40-45% with hypokinetic wall motion. Cardiac catheterization shows clean coronaries. Plans: Start metoprolol 25 mg by mouth twice a day. Keep potassium greater than 4 and magnesium greater than 2. Avoid QTc prolonging agents. Telemetry monitoring. Follow cardiology consultation. Follow repeat EKG. As seen on echocardiogram and cardiac catheterization. Likely emotionally induced, UDS positive for amphetamine. Euvolemic. Plans: Start NATHALIE inhibitor and beta ilya. Follow cardiology consultation. Troponin less than 0.012, 0.084, 0.069 with EKG showing normal sinus rhythm and prolonged QTC of 523. Demand ischemia versus an NSTEMI. Cardiac catheterization shows clean coronaries. Plans: Start aspirin and Lipitor. Continue beta ilya. Point of care glucose 158. Plans: Insulin sliding scale. Regular Accu-Cheks. Hypoglycemic precautions. Plans: Start Lipitor. [Discharge planning based on cardiology recommendations. We'll continue beta ilya and NATHALIE inhibitor for her new onset heart failure. Clean coronary arteries. Repeat EKG pending for QTC.] Pertinent Studies: Chest x-ray, echocardiogram, cardiac catheterization Patient Condition at Discharge: Stable Plan - Discharge Summary Discharge Rx Participant: Yes New Discharge Prescriptions: New Aspirin 81 mg PO DAILY #30 chew Atorvastatin [Lipitor] 40 mg PO HS #30 tab Metoprolol Tartrate [Lopressor] 25 mg PO BID #60 tab Lisinopril [Zestril] 2.5 mg PO BID #60 tab Continue metFORMIN HCL 1,000 mg PO BID Insulin Glargine,Hum.rec.anlog [Basaglar Kwikpen U-100] 15 unit SQ HS PRN PRN Reason: HIGH BLOOD SUGAR Discharge Medication List Insulin Glargine,Hum.rec.anlog [Basaglar Kwikpen U-100] 15 unit SQ HS PRN 01/21/19 [History] metFORMIN HCL 1,000 mg PO BID 01/21/19 [History] Aspirin 81 mg PO DAILY #30 chew 01/23/19 [Rx] Atorvastatin [Lipitor] 40 mg PO HS #30 tab 01/23/19 [Rx] Lisinopril [Zestril] 2.5 mg PO BID #60 tab 01/23/19 [Rx] Metoprolol Tartrate [Lopressor] 25 mg PO BID #60 tab 01/23/19 [Rx] Follow up Appointment(s)/Referral(s): None,Stated [Primary Care Provider] - 1-2 days Rory Corral MD [STAFF PHYSICIAN] - 1 Week Activity/Diet/Wound Care/Special Instructions: Diet: Low-salt, heart healthy Follow-up PCP within 1-2 days of discharge. Follow-up with cardiology within 1 week of discharge. Take all medications as advised. Discharge Disposition: HOME SELF-CARE
[2019-01-23 12:30] LABS: Glucose,Whole Blood 133 mg/dL (75-99)
--- NOTE | 2019-01-23 15:58 | P.PN ---
Subjective Progress Note Date: 01/23/19 This is a pleasant 48-year-old female past medical history significant for diabetes mellitus and chronic nicotine dependence. She denies history of coronary artery disease, hypertension and dyslipidemia. We have been asked to see the patient in consultation secondary to SVT. The patient states she has been under an extreme amount of stress in the previous 2 weeks with the of her mother and [id number]. She is also going through a divorce. Yesterday she was sitting down when out of the blue acutely she felt extremely short of breath associated with her heart racing radiating up into the base of her neck as well as a pressure sensation in the chest. This is not related to activity or exertion and occurred at rest. He symptoms persisted for approximately 10 minutes and seemed to be getting worse so EMS was called. Upon EMS arrival she was noted to be in supraventricular tachycardia with a heart rate in the 199. 6 mg of adenosine was administered. Upon arrival to the emergency department EKG obtained revealed sinus mechanism, left axis deviation, right bundle branch block with a heart rate of 96. Chest x-ray is negative for an acute cardiopulmonary process with evidence of cardiomegaly. Laboratory data reviewed, CBC unremarkable, initial troponin was negative second was 0.084, third was 0.069, TSH 1.55, magnesium 2.0, potassium 4.2, creatinine 0.64 with a GFR greater than 90. She currently takes no daily cardiac medications. She has had no further symptoms of chest pressure, shortness of breath or palpitations since admission. Telemetry tracings reviewed and reveal sinus mechanism. No further SVT. 01/23/2019 Patient was seen and examined this morning, denies any chest pain, breathing is stable. Echocardiogram with Doppler study to be of an ejection fraction of 40- 45%. QTC measured at 470. From our perspective patient may be able to be dis charged home today to follow-up in the office post discharge. Objective - Vital Signs Vital signs: Vital Signs Temp 98.7 F 01/23/19 08:00 Pulse 69 01/23/19 11:22 Resp 16 01/23/19 11:22 BP 123/65 01/23/19 11:22 Pulse Ox 97 01/23/19 11:22 Intake & Output 01/22/19 01/23/19 01/23/19 18:59 06:59 18:59 Intake Total 630 480 720 Balance 630 480 720 Weight 104.326 kg 103.9 kg Intake: IV 150 Oral 480 480 720 Other: # Voids 1 3 - Exam GENERAL: This is a 48-year-old female in no apparent distress at the time of my examination. HEENT: Head is atraumatic, normocephalic. Pupils are equal, round. Sclerae anicteric. Conjunctivae are clear. Mucous membranes of the mouth are moist. Neck is supple. There is no jugular venous distention. No carotid bruit is heard. LUNGS: Clear to auscultation no wheezes, rales or rhonchi. No chest wall tenderness is noted on palpation or with deep breathing. HEART: Regular rate and rhythm without murmurs, rubs or gallops. S1 and S2 heard. ABDOMEN: Soft, nontender. Bowel sounds are heard. No organomegaly noted. EXTREMITIES: No evidence of peripheral edema and no calf tenderness noted. Right radial site clean and dry, good distal pulse. VASCULAR: Radial and dorsalis pedis pulses palpated, no evidence of clubbing. NEUROLOGIC: Patient is awake, alert and oriented x3. - Labs CBC & Chem 7: 01/22/19 03:28 01/23/19 05:50 Labs: Abnormal Lab Results - Last 24 Hours (Table) 01/22/19 01/22/19 01/23/19 Range/Units 17:08 21:55 05:50 Glucose 139 H (74-99) mg/dL POC Glucose (mg/dL) 138 H 165 H (75-99) mg/dL 01/23/19 01/23/19 Range/Units 06:56 12:14 Glucose (74-99) mg/dL POC Glucose (mg/dL) 158 H 133 H (75-99) mg/dL Assessment and Plan Plan: Assessment and plan #1Supraventricular tachycardia #2Abn Troponin, s/p cardiac cath which revealed normal coronaries #3Diabetes mellitus #4Chronic nicotine dependence #5Hyperlipidemia Plan Echo cardiac gram with Doppler study revealed an ejection fraction of 40-45%. From cardiology's perspective, patient may be able to be discharged home today. We'll make a follow-up appointment in the office post discharge. DNP note has been reviewed, I agree with a documented findings and plan of care. Patient was seen and examined.
--- NOTE | 2019-01-26 07:37 | CDI ---
Documentation Clarification Form Date: 01/26/19 From: Rut Thakkar Phone: If questions call Marcella Hernandez @ [phone], Hours-8:30 am & 5 pm M- F Admit Date: 01/22/2019 10:52:00 AM Patient Name: Ayla Lopez Visit Number: [id number] Discharge Date: 01/23/2019 1:51:00 PM ATTENTION: The Clinical Documentation Specialists (CDI) and [employer] Coding Staff appreciate your assistance in clarifying documentation. Please respond to the clarification below the line at the bottom and electronically sign. The CDI & [employer] Coding staff will review the response and follow-up if needed. Please note: Queries are made part of the Legal Health Record. If you have any questions, please contact the author of this message via ITS. Dr. Augustine Randolph We'll continue beta ilya and NATHALIE inhibitor for her new onset heart failure is documented in the your DS. History/Risk Factors: SVT w prolonged QTc, stress-induced cardiomyopathy Clinical Indicators: chest pain with troponin elevation, lightheadness VS/Pulse OX: BNP: none Echocardiogram Results: left ventricular systolic function is mild-moderately impaired with EF between 40-45% Chest X Ray: Cardiomegaly wo new acute pulmonary process In your professional opinion, can you please clarify the acuity and type of CHF if known? TYPE Systolic Heart Failure Diastolic Heart Failure Systolic & Diastolic Heart Failure ACUITY Acute Chronic Acute on Chronic Heart Failure Unable to Determine Other, please specify chronic systolic MTDD
== END 2019-01-23 13:51 | disposition home or self-care (01) | DRG 287 ==
LOC: EC 14:55 → 1SOBS 17:26 → OBSVTOIN 01-22 10:52 → 3SCARD 01-22 11:47
PROVIDERS: ADMIT Family Medicine; ATTEND Family Medicine
PROC: B2111ZZ Fluoroscopy of Multiple Coronary Arteries using Low Osmolar Contrast (ICD-10-PCS; 2019-01-22)
PROC: B2151ZZ Fluoroscopy of Left Heart using Low Osmolar Contrast (ICD-10-PCS; 2019-01-22)
PROC: 4A023N7 Measurement of Cardiac Sampling and Pressure, Left Heart, Percutaneous Approach (ICD-10-PCS; principal; 2019-01-22 10:55)
DX: I47.1 Supraventricular tachycardia (principal); I51.81 Takotsubo syndrome; I24.8 Other forms of acute ischemic heart disease; I50.22 Chronic systolic (congestive) heart failure; I45.81 Long QT syndrome; I45.10 Unspecified right bundle-branch block; E11.9 Type 2 diabetes mellitus without complications; E78.5 Hyperlipidemia, unspecified; F41.9 Anxiety disorder, unspecified; H53.8 Other visual disturbances; F17.210 Nicotine dependence, cigarettes, uncomplicated; Z71.6 Tobacco abuse counseling; Z79.4 Long term (current) use of insulin; Z98.51 Tubal ligation status; Z98.891 History of uterine scar from previous surgery; Z86.14 Personal history of Methicillin resistant Staphylococcus aureus infection; Z80.9 Family history of malignant neoplasm, unspecified
CPT/HCPCS: 36415; 71045; 80048; 80053; 80061; 80306; 81003; 82550; 83735; 84439; 84443; 84481; 84484; 85025; 85610; 85730; 93005; 93306; 93458; 99285

== ENCOUNTER → 2019-03-29 | Outpatient (CLI) | payer OTHER ==
--- NOTE | 2019-03-29 11:20 | XR ---
EXAMINATION TYPE: XR lumbosacral spine min 4V DATE OF EXAM: 03/29/2019 CLINICAL HISTORY: pain COMPARISON: NONE TECHNIQUE: Frontal, lateral, and oblique images of the lumbar spine are obtained. FINDINGS: There are 5 lumbar type vertebral bodies identified. The lumbar spine shows satisfactory alignment without evidence of acute fracture or dislocation. Vertebral body heights are within normal limits. Moderate degenerative disc space narrowing and spondylosis. Facet joint arthropathy. The o verlying soft tissue appears unremarkable. IMPRESSION: No acute fracture or dislocation is seen in the lumbar spine.ICD 10 NO FRACTURE, INITIAL EVALUATION
== END ==
LOC: RADXRMAIN 10:31
PROVIDERS: ATTEND Family Medicine
DX: M54.5 Low back pain (principal)
CPT/HCPCS: 72110

== ENCOUNTER → 2019-04-25 | Outpatient (CLI) | payer OTHER ==
--- NOTE | 2019-04-25 07:00 | MR ---
EXAMINATION TYPE: MR lumbar spine wo con DATE OF EXAM: 04/25/2019 COMPARISON: Lumbar spine x-ray March 29, 2019 HISTORY: Low back pain and sciatica. TECHNIQUE: Multiplanar, multisequence imaging of the lumbar spine is performed without IV contrast. FINDINGS: Sagittal images of the lumbar spine show vertebral body heights and alignment to appear sat isfactory. Multilevel disc desiccation is present. Mild disc space narrowing posteriorly at L3-L4 lev el. Mild multilevel anterior spurring. The conus medullaris is normal in position and signal ending a t L1-L2 disc space. Scattered hemangiomas are present with largest noted T11, T12, and L2 levels. Het erogeneous ordered type II endplate changes inferior L5 level. Axial images show the T12-L1, L1-L2, and L2-L3 levels all to appear within normal limits. Axial images at the L3-L4 level show mild broad disc bulge minimally effacing the anterior thecal sac and mild facet degenerative changes bilaterally. Bilateral neural foramina are patent. Axial images at L4-L5 level mild to moderate facet degenerative changes bilaterally. There is focal l eft foraminal disc protrusion minimally effacing anterolateral thecal sac and causing asymmetric mild left-sided anterior inferior neural foraminal narrowing. Axial images at L5-S1 level show right paracentral disc extrusion extending superiorly seen best sagi ttal image 7 and axial image 5. This effaces anterolateral spinal canal. Mild facet degenerative short ges are present bilaterally. Neural foramina are patent. No suspicious incidental retroperitoneal findings. IMPRESSION: Multilevel degenerative changes in the mid to lower lumbar spine as detailed above. Most prominent disc herniation noted L5-S1 level.
== END | disposition home or self-care (01) ==
LOC: RADMRIMAIN 05:59
PROVIDERS: ATTEND Family Medicine
DX: M99.73 Connective tissue and disc stenosis of intervertebral foramina of lumbar region (principal); M48.061 Spinal stenosis, lumbar region without neurogenic claudication; M51.27 Other intervertebral disc displacement, lumbosacral region; M51.26 Other intervertebral disc displacement, lumbar region; M47.817 Spondylosis without myelopathy or radiculopathy, lumbosacral region; M47.816 Spondylosis without myelopathy or radiculopathy, lumbar region; D18.09 Hemangioma of other sites
CPT/HCPCS: 72148

== ENCOUNTER → 2019-11-08 | Outpatient (CLI) | payer OTHER ==
[2019-11-08 13:46] VITALS: BP 136/91; PULSE 98; RESP 18; TEMP 97.9
--- NOTE | 2019-11-08 14:26 | P.PAINCN ---
History of Present Illness - Reason for Consult Consult date: 11/08/19 - History of Present Illness This is a 49-year-old patient referred by Dr. Vazquez with a chief complaint of chronic pain in bilateral low back, radiating to bilateral buttocks and posterior thighs. She has had this pain for several years. Pain is rated as 7/10, described as constant, dull. Pain is worse in the back compared to the legs. Pain is worse with bending, position changes and better with heat, lying down, medications. Patient does not take any medications for pain, she has tried Neurontin in the past with no benefit. She has not had surgery in the past, she has been to physical therapy before, approximately 6 months ago, with no benefit. She has had injections done with Dr. Green's office, last done in June 2019. She reports no benefit from this. She does not recall the exact procedure she has done. Patient also denies new-onset weakness, bowel/bladder incontinence, or any other signs or symptoms of cauda equina syndrome. There are no signs of acute intoxication, and no indications of medication diversion or overuse. In addition to above, 13-point review of systems is also negative for chest pain, shortness of breath, changes in vision, changes in hearing, new onset weakness, abdominal pain, diarrhea, extreme fatigue, malaise, fever, skin changes, homicidal or suicidal ideation, or bowel or bladder incontinence. Physical exam: Vital Signs: Reviewed in EMR GENERAL: Well appearing, in no acute distress, obese PSYCH: Mood and affect is appropriate. Awake, alert, and oriented SKIN: Skin color, texture, turgor normal, no rashes or lesions HEENT: Normocephalic, atraumatic. EOM intact CV: No pedal edema RESP: Respirations are unlabored, no audible wheezing GI: Abdomen non-distended MUSCULOSKELETAL: Bilateral lower extremity strength is normal and symmetric. No atrophy or tone abnormalities are noted. Lumbar spine: Straight leg raising in the sitting position is negative for radicular pain. Mild tenderness to palpation over the lumbar spine and paraspinous muscles bilaterally. Positive for pain with facet loading and back extension/rotation bilaterally. Pain Limited lumbar extension Buttocks: No pain to palpation over the PSIS, Darius test is negative bilaterally Extremities: Peripheral joint ROM is full and pain free without obvious instability or laxity in all four extremities. No edema or skin discolorations noted. Gait: Gait is normal NEUR: Bilateral lower extremity coordination and muscle stretch reflexes are physiologic and symmetric. Negative clonus. No loss of sensation is noted. Cranial nerves are grossly intact. Imaging: MRI lumbar spine done at [facility] on 04/25/2019 shows multilevel degenerative changes in the mid to lower lumbar spine, most prominent disc herniation at L5-S1, which displaces the anterolateral spinal canal. Multilevel spondylosis noted, more prominent at L4-5 and L5-S1. Assessment: 1. Lumbar spondylosis 2. Obesity 3. Nicotine dependence Plan: 1. Explanation: Diagnoses, prognoses, and multiple treatment options including but not limited to physical therapy, interventional therapies, medication management were discussed with the patient and all questions were answered to the patient's satisfaction. 2. Investigations: MRI lumbar spine reviewed 3. Counseling: The patient was counseled for 3 minutes on SMOKING CESSATION, BODY MASS INDEX, EXERCISE. Specifically, the patient was instructed regarding the importance of smoking cessation, weight control, and exercise in the context of both chronic pain and overall health. She was given a lumbar exercise sheet handout. Of note, she has lost 150 pounds over the last 2 years through diet. 4. Procedures: We will schedule bilateral medial branch blocks to L3, L4, L5 for facets L4-5 and L5-S1 5. Consultations: None 6. Medications: None 7. Disposition: For above-mentioned procedure Past Medical History Past Medical History: Diabetes Mellitus Additional Past Medical History / Comment(s): restless leg, chronic back pain, past hx of HTN and hyperlipidemia History of Any Multi-Drug Resistant Organisms: MRSA Year Discovered:: 2010 MDRO Source:: arm Past Surgical History: Section, Cholecystectomy, Tubal Ligation Additional Past Surgical History / Comment(s): c/s x 3 Past Anesthesia/Blood Transfusion Reactions: Previous Problems w/ Anesthesia, Postoperative Nausea & Vomiting (PONV) Additional Past Anesthesia/Blood Transfusion Reaction / Comm: clausterphobia Smoking Status: Current every day smoker - Past Family History Sister(s) Family Medical History: Cancer Father Family Medical History: Cancer Medications and Allergies Home Medications Medication Instructions Recorded Confirmed Type metFORMIN HCL 1,000 mg PO BID 01/21/19 11/08/19 History Dextroamphetamine/Amphetamine 20 mg PO BID 11/05/19 11/08/19 History [Adderall] rOPINIRole HCL [Requip] 1 mg PO HS 11/05/19 11/08/19 History Ibuprofen [Motrin Ib] 400 mg PO BID 11/08/19 11/08/19 History Allergies Allergy/AdvReac Type Severity Reaction Status Date / Time No Known Allergies Allergy Verified 11/08/19 13:38 PQRS Measure Charge Sheet Measure #130: Documentation of Current Meds in Medical Chart: Patient's medications documented in chart Measure #226: Tobacco Use: Screen & Cessation Intervention: Pt screened for tobacco use AND intervention given Measure #111: Pneumonia Vaccination: Pneumococcal vaccine NOT administered or previously given Measure #47: Advance Care Plan: Advance care planning discussed & documented, pt chose/unable to give Measure #412: Opioid Treatment Agreement: No documentation of signed opioid tr eatment agreement Measure #408: Opioid Therapy Follow-up Evaluation: Patient had NO f/u eval minimum every 3 months during opioid therapy Measure #317: Preventitive Care & Scrn High Bld Press & F/U: Pre-hypertensive or hypertensive BP documented, pt will f/u with PCP Measure #128: Body Mass Index (BMI) Screening & Follow-up: BMI documented ABOVE normal parameters - f/u documented Measure #131: Pain Assessment & Follow-up: Pain positive & plan documented, Follow-up scheduled Measure #431: Unhealthy Alcohol Use Preventative Care & Scrn: Patient not identified as an unhealthy alcohol user PQRS Narrative: Smoking Status Current every day smoker Pain Intensity [Back] 7 Scale Used Numeric (1 - 10) Home Medications: Ambulatory Orders metFORMIN HCL 1,000 mg PO BID 01/21/19 Dextroamphetamine/Amphetamine [Adderall] 20 mg PO BID 11/05/19 rOPINIRole HCL [Requip] 1 mg PO HS 11/05/19 Ibuprofen [Motrin Ib] 400 mg PO BID 11/08/19
== END | disposition home or self-care (01) ==
LOC: PNWHC3 13:27
PROVIDERS: ATTEND Anesthesiology
DX: M47.816 Spondylosis without myelopathy or radiculopathy, lumbar region (principal); E66.9 Obesity, unspecified; F17.200 Nicotine dependence, unspecified, uncomplicated; Z79.891 Long term (current) use of opiate analgesic; Z79.899 Other long term (current) drug therapy; Z79.84 Long term (current) use of oral hypoglycemic drugs
CPT/HCPCS: 99211

== ENCOUNTER 2019-11-22 09:44 | Day surgery (SDC) | payer OTHER ==
[2019-11-20 16:17] VITALS: BMI 34.9
[~2019-11-22 09:44] MED LIST: LACTATED RINGERS 1,000 ML IV SCH
[2019-11-22 10:19] VITALS: TEMP 97
[2019-11-22 10:19] LABS: Glucose,Whole Blood 135 mg/dL (75-99)
[2019-11-22] MEDS ORDERED: methylPREDNISolone ACETATE 40 MG/ML 1 ML VIAL ONE (10:37)
[2019-11-22] MEDS ORDERED: fentaNYL (PF) 50 MCG/ML 2 ML AMP ONE (10:37)
[2019-11-22] MEDS ORDERED: MIDAZOLAM 2 MG/2 ML VIAL ONE (10:37)
[2019-11-22] MEDS ORDERED: ROPIVACAINE 5MG/ML 20ML VIAL ONE (10:37)
--- NOTE | 2019-11-22 10:55 | P.PCN ---
Date of Procedure: 11/22/19 Procedure(s) Performed: PREOPERATIVE DIAGNOSIS : 1- Lumbar spondylosis with Facet Arthropathy without myelopathy . POSTOPERATIVE DIAGNOSIS: 1- Lumbar spondylosis with Facet Arthropathy without myelopathy . PROCEDURE: Diagnostic bilateral L3 , L4 , and L5 medial branch block under fluoroscopy guidance(fluoroscopy images available in the radiology Department ) ( To target the facet joint between L4-5 , and L5-S1 ) ANESTHESIA:, moderate sedation with intravenous Versed 2 mg and Fentanyl 50 mcg. EBL: Minimal COMPLICATION: None. IV FLUIDS: 100 mL of normal saline. PROCEDURE INDICATION: Chronic low back pain secondary to Facet arthropathy unresponsive to conservative treatment. PROCEDURE DESCRIPTION: the patient was seen and identified in the preop holding area , risks and benefits and possible complications of the procedure and alternative were discussed with the patient, and the patient agreed to proceed with the procedure and signed the consent IV was started and vital signs monitored during the procedure and fluoroscopy was used to maximize the benefit and accuracy of the needle placement, and sedation was given to decrease patient anxiety, patient was taken to the procedure room and placed in prone position vital signs monitored in the back prepped with chlorhexidine X3 then under strict sterile technique using a right oblique fluoroscopy ,the junction of the transverse process and the superior articulating process of the right L3 , L4 , and L5 vertebra which corresponding to the fluoroscopy image of the eye of the Merlin dog on the block side for the medial branches and subsequently , after local infiltration of skin and subcu tissuies with Ropivacaine 0.5 % , one mL at each level ,then 22-gauge 5 inches long Quincke-type needles , 3 needle was used , each one of them placed at the junction of the base of the transverse process and the superior articular process at the appropriate level, and the needle was advanced until the periosteum contacted, needle placement confirmed with AP oblique and lateral view and after appropriate needle placement confirmed, and after negative aspiration for heme and CSF and there was no paresthesia 1-1/2 mL of Ropivacaine 0.5% mixed with 20 mg Depo-Medrol , then half mL injected at each level after negative aspiration the needle subsequently removed and the same procedure repeated for the left side at left side at L3 , L4 and L5 levels. At the end of the procedure and the needles removed and a bandage applied after the skin was cleaned the cleaning solution patient taken to recovery room in stable condition and monitors in the recovery room for 20-30 minutes and discharged home in stable condition after discharge criteria met and patient will follow up with the pain clinic in 2-4 weeks
[2019-11-22] MEDS ORDERED: IV FLUID CONTINUATION 1,000 ML IV ONE (11:03)
[2019-11-22 11:07] VITALS: RESP 16
[2019-11-22 11:16] VITALS: BP 130/84; PULSE 93
--- NOTE | 2019-11-22 12:01 | FL ---
Fluoroscopy HISTORY: Pain 11 seconds fluoroscopy time supplied to the referring clinician. 4 intraoperative C-arm images docum ent the procedure. See dictated report from anesthesia.
== END 2019-11-22 11:32 | disposition home or self-care (01) ==
LOC: ORPAIN 09:44
PROVIDERS: ATTEND Specialist
DX: G89.29 Other chronic pain (principal); M47.816 Spondylosis without myelopathy or radiculopathy, lumbar region; E11.9 Type 2 diabetes mellitus without complications
CPT/HCPCS: 81025; 64493; 64494; J2250; J1030; J3010; J2795; 99152

== ENCOUNTER 2019-12-06 11:46 | Day surgery (SDC) | payer OTHER ==
[2019-12-04 09:50] VITALS: BMI 39.0
[2019-12-06] MEDS ORDERED: LACTATED RINGERS 1,000 ML IV SCH (11:48)
[2019-12-06 12:07] VITALS: RESP 16; TEMP 97.2
[2019-12-06] MEDS ORDERED: LIDOCAINE 1% (10MG/ML) FOR IV START INTRADERMA ONE (12:10)
[2019-12-06 12:26] LABS: Glucose,Whole Blood 136 mg/dL (75-99)
[2019-12-06] MEDS ORDERED: LIDOCAINE 4% (PF) 5 ML AMP ONE (13:10)
[2019-12-06] MEDS ORDERED: IOPAMIDOL M200 10 ML VIAL ONE (13:10)
[2019-12-06] MEDS ORDERED: MIDAZOLAM 2 MG/2 ML VIAL ONE (13:10)
[2019-12-06 13:50] VITALS: BP 126/86; PULSE 82
[2019-12-06] MEDS ORDERED: IV FLUID CONTINUATION 1,000 ML IV ONE (13:50)
--- NOTE | 2019-12-06 13:59 | FL ---
Fluoroscopy HISTORY: Pain 5 seconds fluoroscopy time supplied to the referring clinician. 3 intraoperative C-arm images docume nt the procedure. See dictated report from anesthesia.
--- NOTE | 2019-12-06 14:22 | P.PCN ---
Date of Procedure: 12/06/19 Procedure(s) Performed: PREOPERATIVE DIAGNOSIS : Lumbar spondylosis with Facet Arthropathy without myelopathy POSTOPERATIVE DIAGNOSIS: same PROCEDURE: Second Diagnostic lumbar medial branch block with fluoroscopy at L3, L4, L5 [bilateral] which covers facets L4-5 and L5-S1 ANESTHESIA: Local anesthetic; moderate IV sedation with Versed, sedation time 11 minutes Fluoroscopy was used for the procedure and images were saved in the radiology portion of the chart. Surgeon: Skylar Badillo MD PROCEDURE INDICATION: Lumbar back pain without radiculopathy, not responsive to conservative management. PROCEDURE DESCRIPTION: the patient was seen and identified in the preop holding area , risks and benefits and possible complications of the procedure and alternatives were discussed with the patient, and the patient agreed to proceed with the procedure and signed the consent . IV was started , vital signs were monitored during the procedure and fluoroscopy was used to maximize the benefit and accuracy of the needle placement, and sedation was given to decrease patient anxiety. Patient was taken to the procedure room and placed in prone position. The lumbar region was prepped using chlorhexidineX-2. Under strict sterile technique using AP fluoroscopy the bilateral sacral ala were identified and using ipsilateral oblique fluoroscopy ,the junction of the transverse process and the superior articulating process of the L4, L5 vertebra which corresponds to the fluoroscopy image of the eye of the Merlin dog for the medial branches were identified. Subsequently, after local infiltration of skin with lidocaine 1% 0.2 mL at each level , a 25-gauge 3.5" Quincke-type needle was placed at the junction of the base of the transverse process and the superior articular process at the appropriate level as well as the sacral ala, and the needle was advanced until the periosteum contacted, needle placement confirmed with AP and oblique fluoroscopy, 0.2 mL of Isovue 200 per level was injected which revealed no vascular uptake and after negative aspiration, 0.5 mL of [lidocaine 4%] was injected at each level and the needle subsequently removed . At the end of the procedure and the needles were removed and a bandage applied after the skin was cleaned. The patient was taken to recovery room in stable condition and monitors in the recovery room for 20-30 minutes and discharged home in stable condition after discharge criteria met and patient will follow up in clinic in 2 weeks EBL: Minimal COMPLICATION: None.
== END 2019-12-06 14:02 | disposition home or self-care (01) ==
LOC: ORPAIN 11:46
PROVIDERS: ATTEND Anesthesiology
DX: G89.29 Other chronic pain (principal); M47.816 Spondylosis without myelopathy or radiculopathy, lumbar region; E11.9 Type 2 diabetes mellitus without complications; E66.9 Obesity, unspecified; F17.200 Nicotine dependence, unspecified, uncomplicated; G25.81 Restless legs syndrome; I10 Essential (primary) hypertension; E78.5 Hyperlipidemia, unspecified; Z86.14 Personal history of Methicillin resistant Staphylococcus aureus infection; Z98.51 Tubal ligation status; Z90.49 Acquired absence of other specified parts of digestive tract; Z98.891 History of uterine scar from previous surgery; F40.240 Claustrophobia; Z80.9 Family history of malignant neoplasm, unspecified; Z79.84 Long term (current) use of oral hypoglycemic drugs; Z79.899 Other long term (current) drug therapy; Z68.38 Body mass index [BMI] 38.0-38.9, adult
CPT/HCPCS: 81025; 64493; 64494; J2001; J2250; Q9966; 99152

== ENCOUNTER → 2019-12-19 | Outpatient (CLI) | payer OTHER ==
[2019-12-19 08:43] VITALS: BP 130/83; PULSE 90; RESP 18; TEMP 97.7
--- NOTE | 2019-12-19 09:01 | P.PAINPG ---
Subjective Progress Note Date: 12/19/19 This is a follow-up visit for this 49 years old female with a chronic history of severe low back pain, she is diagnosed with lumbar spondylosis with lumbar facet arthropathy without myelopathy, lumbar degenerative disc disease, lumbar herniated disc disease at L5-S1, status post diagnostic medial branch block lumbar area 2 at L3, L4 ,L5 bilateral , her pain was 10 over 10 before the first diagnostic block dropped to 0/10 after the block , and she gets similar results after the second one, the pain is constant and increases with any activity interference with her quality of life Objective - Vital Signs Vital signs: Vital Signs Temp 97.7 F 12/19/19 08:38 Pulse 90 12/19/19 08:38 Resp 18 12/19/19 08:38 BP 130/83 12/19/19 08:38 Pulse Ox 97 12/19/19 08:38 - Exam Physical Examinations : -Constitutiona : Cooperative , not in acute distress . -HEENT : nech : supple , no Lymphadenopathy , normal thyroid size . : eyes : no ptosis , no icterus, no photophobia . - neurologic : Cranial nerve II to XII intact , no focal neurological deffecit . -psychatric : alert , oriented X 3 , appropriate affect , intact judgment and insight . -Lymphatic : no Lymphadenopathy . - musculoskeltal : Lumber spine moter stegnth lower extremities ,thigh and legs 5/5 Right side , 5/5 Left side deep tendon reflexes : normal Knee Jerk , normal ankle Jerk lumber facet Loading Test =positive Right , positive Left Range of motion of the lumbar spine Flexion 30 degrees, extension 10 degrees strait leg raising test = positive at 30 degree Fabere test= positive Right , and positive LT . tenderness over the Sacroiliac joint on the Right , and Left sides . Assessment and Plan Plan: Assessment and plan= chronic low back pain secondary to lumbar degenerative disc disease , lumbar spondylosis with lumbar facet arthropathy . Lumbar herniated disc disease Patient had positive results after diagnostic medial branch block x2 Medication managements= patient given prescription for Motrin 800 mg every 8 hours when necessary dispense 90 with 1 refill . Interventions= patient will be good candidate to have a radiofrequency thermocoagulation of the medial branch lumbar area at L3, L4, L5 ( denervate facet joint at L4-5, L5-S1 ). , Time with Patient: Less than 30 PQRS Measure Charge Sheet Measure #130: Documentation of Current Meds in Medical Chart: Patient's medications documented in chart Measure #226: Tobacco Use: Screen & Cessation Intervention: Pt screened for tobacco use AND intervention given Measure #111: Pneumonia Vaccination: Pneumococcal vaccine NOT administered or previously given Measure #47: Advance Care Plan: Advance care planning discussed & documented, plan or surrogate given Measure #412: Opioid Treatment Agreement: No documentation of signed opioid treatment agreement Measure #408: Opioid Therapy Follow-up Evaluation: Patient had NO f/u eval minimum every 3 months during opioid therapy Measure #317: Preventitive Care & Scrn High Bld Press & F/U: Normal blood pressure, f/u not required Measure #128: Body Mass Index (BMI) Screening & Follow-up: BMI documented ABOVE normal parameters - f/u documented Measure #131: Pain Assessment & Follow-up: Pain positive & plan documented, Follow-up scheduled Measure #431: Unhealthy Alcohol Use Preventative Care & Scrn: Patient not identified as an unhealthy alcohol user PQRS Narrative: Smoking Status Current every day smoker Blood Pressure 130/83 Pain Intensity [Lower Back] 7 Scale Used Numeric (1 - 10) Hx Alcohol Use (MH) No Home Medications: Ambulatory Orders metFORMIN HCL 1,000 mg PO BID 01/21/19 Dextroamphetamine/Amphetamine [Adderall] 20 mg PO BID 11/05/19 rOPINIRole HCL [Requip] 1 mg PO BID 11/05/19 Ibuprofen [Motrin Ib] 800 mg PO BID PRN 11/08/19 Controlled Substance Measures - Controlled Substance Measures Is patient prescribed a controlled substance at discharge?: No
== END | disposition home or self-care (01) ==
LOC: PNWHC3 08:30
PROVIDERS: ATTEND Specialist
DX: G89.29 Other chronic pain (principal); M51.36 Other intervertebral disc degeneration, lumbar region; M51.27 Other intervertebral disc displacement, lumbosacral region; M47.816 Spondylosis without myelopathy or radiculopathy, lumbar region; F17.210 Nicotine dependence, cigarettes, uncomplicated; Z79.84 Long term (current) use of oral hypoglycemic drugs; Z79.899 Other long term (current) drug therapy
CPT/HCPCS: 99211

== ENCOUNTER 2019-12-27 07:26 | Day surgery (SDC) | payer OTHER ==
[2019-12-24 11:55] VITALS: BMI 35.1
[2019-12-27 07:49] VITALS: TEMP 97.4
[2019-12-27] MEDS ORDERED: LACTATED RINGERS 1,000 ML IV ONE (08:02)
[2019-12-27] MEDS ORDERED: LIDOCAINE 1% (10MG/ML) FOR IV START INTRADERMA ONE (08:03)
[2019-12-27 08:07] LABS: Glucose,Whole Blood 143 mg/dL (75-99)
[2019-12-27] MEDS ORDERED: fentaNYL (PF) 50 MCG/ML 2 ML AMP ONE (08:47)
[2019-12-27] MEDS ORDERED: MIDAZOLAM 2 MG/2 ML VIAL ONE (08:47)
[2019-12-27] MEDS ORDERED: LIDOCAINE 4% (PF) 5 ML AMP ONE (08:47)
--- NOTE | 2019-12-27 09:24 | P.PCN ---
Date of Procedure: 12/27/19 Description of Procedure: PREOPERATIVE DIAGNOSIS: Lumbar Spondylosis POSTOPERATIVE DIAGNOSIS: Same PROCEDURES: Radiofrequency ablation of the bilateral L3, L4, L5 medial branches with fluoroscopic guidance SURGEON: Malachi Juárez MD. ANESTHESIA: Lidocaine 1% 5 mL, Moderate sedation with intravenous Versed and fentanyl, sedation time 32 min EBL: Minimal Fluoroscopy was used for the procedure and images were saved in the radiology portion of the chart. PROCEDURE INDICATION: The patient with low back pain secondary to lumbar facet arthropathy who had more than 50% relief of pain with previous diagnostic lumbar medial branch block X2. PROCEDURE DESCRIPTION / TECHNIQUE: The patient was seen and identified in the preoperative area. Risks, benefits, complications, including but not limited to risk of infection ,bleeding , allergic reactions to the medications and in complete pain relief , and alternatives were discussed with the patient, the patient agreed to proceed with the procedure and signed the consent. IV was started. The operative site was marked. Patient was taken to the OR and time out was completed. The patient was placed in the prone position on the procedure table. The lumbar area was prepped and draped in the usual sterile fashion. . Vital signs were closely monitored during the procedure .IV sedation was used during the procedure to decrease patients anxiety. Using AP and then oblique fluoroscopy, the "eye of the Merlin dog" corresponding to the connection between the superior and transverse articular processes of the [] L4 and L5 as well as the sacral ala were identified, marked, and localized with 1% lidocaine. Subsequently, an 18 [id number] radiofrequency cannula with a 10-mm active tip was advanced guided by fluoroscopy to the identified target at each site. Needle positioning was confirmed on AP, oblique and lateral fluoroscopy. Motor testing at 2.5 Hz was done with paraspinal muscle stimulation only, and no radicular symptoms down the legs. Then 1 mL of 4% lidocaine was injected in each site. Radiofrequency thermocoagulation at 80 degrees celsius for 90 seconds was then performed. [place] were removed. Sterile dressings were applied. COMPLICATIONS: No acute complications. DISPOSITION / PLANS: The patient was placed in a supine position and transferred to the recovery area in a stable condition for observation and was discharged from the recovery room after meeting discharge criteria. Home disch arge instructions given to the patient by the staff. The patient will follow up in clinic in 4 weeks.
[2019-12-27] MEDS ORDERED: LACTATED RINGERS 1,000 ML IV SCH (09:29)
[2019-12-27 09:31] VITALS: RESP 16
--- NOTE | 2019-12-27 09:34 | FL ---
EXAMINATION TYPE: FL guided pain mgmt statistic DATE OF EXAM: 12/27/2019 HISTORY: Fluoroscopy time 50 seconds of fluoroscopy provided. IMPRESSION: 1. Fluoroscopy time.
[2019-12-27 09:46] VITALS: BP 130/58; PULSE 89
[2019-12-27] MEDS ORDERED: IV FLUID CONTINUATION 1,000 ML IV ONE (09:46)
== END 2019-12-27 09:55 | disposition home or self-care (01) ==
LOC: ORPAIN 07:26
PROVIDERS: ATTEND Anesthesiology
DX: M47.896 Other spondylosis, lumbar region (principal); Z90.710 Acquired absence of both cervix and uterus
CPT/HCPCS: 81025; 64635; 64636; J2001; J2250; J3010; 99152; 99153

== ENCOUNTER → 2020-02-20 | Outpatient (CLI) | payer OTHER ==
[2020-02-20 10:43] VITALS: BP 131/85; PULSE 92; RESP 18; TEMP 97.8
--- NOTE | 2020-02-20 11:08 | P.PN ---
Subjective Progress Note Date: 02/20/20 this is a 49-year-old lady with history of chronic lower back pain with radiation to the knees bilaterally. The patient occasionally feels numbness and tingling in the thighs anteriorly. She denies any bowel or bladder dysfunction. She had lumbar medial branch RFA recently which has not helped her pain as she states. Patient denies new-onset weakness, bowel/bladder incontinence, or any other signs or symptoms of cauda equina syndrome. There are no signs of acute intoxication, and no indications of medication diversion or overuse. In addition to above, 13-point review of systems is also negative for chest pain, shortness of breath, changes in vision, changes in hearing, new onset weakness, abdominal pain, diarrhea, extreme fatigue, malaise, fever, skin changes, homicidal or suicidal ideation, or bowel or bladder incontinence. Vital Signs: Reviewed in EMR Gen: AAOx3, NAD HEENT: PERRLA,hearing grossly normal Pulm: resp unlabored Neck: supple, trachea midline Neuro exam of the lower extremities:ormal muscle strength bilaterally Straight leg raising test:negative bilaterally Luis's test: significantly positive bilaterally positive tenderness around the sacroiliac joints bilaterally Neuro: CN II-XII grossly intact, Imaging: Reviewed in EMR/chart Assessment: bilateral sacroiliitis Morbid obesity Diabetes Lumbar spondylosis without myelopathy Disc herniation at the L5-S1 level Plan: 1. Explanation: Opioid and psychological risk scores were reviewed. Diagnoses, prognoses, and multiple treatment options including but not limited to physical therapy, interventional therapies, adjuvant medical therapies, narcotic medication therapies, and surgery were discussed with the patient and all questions were answered to the patient's satisfaction. 2. Opioid agreement: Signed with the patient and the patient is warned not to use opioids while driving or before driving and not to combine opioids with benzodiazepines or alcohol. 3. Counseling: The patient was counseled extensively on SMOKING CESSATION, BODY MASS INDEX, EXERCISE. Specifically, the patient was instructed regarding the importance of smoking cessation, obesity, and exercise in the context of both chronic pain and overall health. 4. Procedures: schedule for bilateral sacroiliac joint steroid injection under fluoroscopic guidance 5. Consultations: None 6. Investigations: None 7. Medications: decrease Motrin to 800 mg twice a day if needed for pain 8. Disposition: return to clinic in 4-8 weeks and to the above-mentioned procedure as soon as possible 9. Maps were reviewed and were appropriate. Objective - Vital Signs Vital signs: Vital Signs Temp 97.8 F 02/20/20 10:36 Pulse 92 02/20/20 10:36 Resp 18 02/20/20 10:36 BP 131/85 02/20/20 10:36 Pulse Ox 98 02/20/20 10:36 Intake & Output 02/19/20 02/20/20 02/20/20 18:59 06:59 18:59 Weight 115.666 kg
== END | disposition home or self-care (01) ==
LOC: PNWHC3 10:27
PROVIDERS: ATTEND Anesthesiology
DX: M51.27 Other intervertebral disc displacement, lumbosacral region (principal); M47.816 Spondylosis without myelopathy or radiculopathy, lumbar region; E66.01 Morbid (severe) obesity due to excess calories; M46.1 Sacroiliitis, not elsewhere classified; Z79.1 Long term (current) use of non-steroidal anti-inflammatories (NSAID)
CPT/HCPCS: 99211

== ENCOUNTER 2020-03-11 07:57 | Day surgery (SDC) | payer OTHER ==
[2020-03-10 10:26] VITALS: BMI 37.4
[2020-03-11 08:28] LABS: Glucose,Whole Blood 135 mg/dL (75-99)
[2020-03-11 08:32] VITALS: TEMP 98
[2020-03-11] MEDS ORDERED: ROPIVACAINE 5MG/ML 20ML VIAL ONE (08:36)
[2020-03-11] MEDS ORDERED: TRIAMCINOLONE ACETONIDE 40 MG/ML 1 ML VIAL ONE (08:36)
--- NOTE | 2020-03-11 08:50 | P.PCN ---
Date of Procedure: 03/11/20 Surgeon: Yuri Davis Pathology: none sent Condition: stable Disposition: PACU Description of Procedure: Preoperative diagnoses= bilateral sacroiliac joint dysfunction and sacroiliitis Postoperative diagnoses= same as preoperative diagnosis. Procedure= bilateral sacroiliac joint steroid injection under fluoroscopic guidance. Anesthesia= local anesthesia with lidocaine 1% only. Estimated blood loss=minimal. Procedure indication= the patient had a history of severe chronic low back pain, diagnosed with sacroiliitis and lumbar sacral facet arthropathy unresponsive to conservative treatment. Procedure description= the patient was seen and identified in the preoperative holding area, risks and benefits and alternative of the procedure and possible complications discussed with the patient, patient signed the consent. an IV was started, and vital signs were monitored and were stable throughout the procedure, patient was placed in the prone position or table and the lumbosacral area was prepped and draped with a sterile fashion, vital signs were closely monitored during the procedure.The right sacroiliac joint was identified on the AP view of fluoroscopy then the C-arm was tilted to the contralateral oblique position to superimpose the anterior and posterior joint lines on each other and to have a unified joint line with the target point at the inferior one third of this line. I used 22-gauge 3-1/2 inch Quincke spinal needle for this procedure and after getting into the sacroiliac joint I injected 20 mg of Kenalog +2 MLS of Ropivacaine 0.5%. The opposite side was done in the same manner .Patient tolerated the procedure well without any complication, The patient returned to supine position after the back was cleaned and a Band- Aid applied, the patient transported to recovery room in stable condition and he was monitored for 30 minutes before she was discharged home in stable condition . patient will follow up with the pain clinic in a few weeks. A copy of the needle placement was saved to the C-arm machine.
[2020-03-11 09:01] VITALS: RESP 16
[2020-03-11 09:11] VITALS: BP 132/96; PULSE 86
--- NOTE | 2020-03-11 09:35 | FL ---
EXAMINATION TYPE: FL guided pain mgmt statistic DATE OF EXAM: 03/11/2020 CLINICAL HISTORY: Bilateral sacroiliac joint pain. TECHNIQUE: Fluoroscopy. COMPARISON: None. FINDINGS: Fluoroscopic guidance was provided during pain relief procedure performed by Dr. Davis . A total of 8 seconds of fluoroscopic time was utilized during the procedure and two spot images are acquired. Images acquired shows needle localization at inferior level of the bilateral sacroiliac j oints. IMPRESSION: As Above.
== END 2020-03-11 09:15 | disposition home or self-care (01) ==
LOC: ORPAIN 07:57
PROVIDERS: ATTEND Anesthesiology
DX: G89.29 Other chronic pain (principal); M46.1 Sacroiliitis, not elsewhere classified; M47.897 Other spondylosis, lumbosacral region; E11.9 Type 2 diabetes mellitus without complications
CPT/HCPCS: 81025; J3301; J2795; G0260

== ENCOUNTER → 2020-04-21 | Outpatient (CLI) | payer OTHER ==
[2020-04-21 10:28] VITALS: BP 145/95; PULSE 96; RESP 16; TEMP 98.1
--- NOTE | 2020-04-21 10:46 | P.PN ---
Subjective Progress Note Date: 04/21/20 This is a 49-year-old morbidly obese lady with history of lower back pain with radiation to the upper thighs and complaining of tingling in the upper thighs 2. The patient failed to respond to multiple injections on her back including bilateral sacroiliac joint steroid injection and diagnostic lumbar medial branch block. Her lumbar spine MRI from last year shows degenerative disc disease with facet arthropathy with no compression of any nerve roots. She denies any weakness in the lower extremities or any bowel or bladder dysfunction. The pain occasionally wakes her up at night. She takes Neurontin at home for this pain and she tried ibuprofen and Mobic previously with no benefits. The patient right now takes Motrin 800 mg 3-4 times a day as she states. Patient denies new-onset weakness, bowel/bladder incontinence, or any other signs or symptoms of cauda equina syndrome. There are no signs of acute intoxication, and no indications of medication diversion or overuse. In addition to above, 13-point review of systems is also negative for chest pain , shortness of breath, changes in vision, changes in hearing, new onset weakness, abdominal pain, diarrhea, extreme fatigue, malaise, fever, skin changes, homicidal or suicidal ideation, or bowel or bladder incontinence. Vital Signs: Reviewed in EMR Gen: AAOx3, NAD HEENT: PERRLA,hearing grossly normal Pulm: resp unlabored Neck: supple, trachea midline Neuro exam of the lower extremities: Normal muscle strength bilaterally Straight leg raising test: Normal bilaterally Luis's test: Range of motion of the lumbar spine: Decreased Facet loading test: Positive Tenderness in the paravertebral musculature: Positive on the right side of the lumbar spine Neuro: CN II-XII grossly intact, Imaging: Reviewed in EMR/chart Assessment: Lumbar DDD Lumbar facet arthropathy Possible lumbar stenosis Morbid obesity Nicotine dependence Plan: 1. Explanation: Opioid and psychological risk scores were reviewed. Diagnoses, prognoses, and multiple treatment options including but not limited to physical therapy, interventional therapies, adjuvant medical therapies, narcotic medication therapies, and surgery were discussed with the patient and all questions were answered to the patient's satisfaction. 2. Opioid agreement: Signed with the patient and the patient is warned not to use opioids while driving or before driving and not to combine opioids with benzodiazepines or alcohol. 3. Counseling: The patient was counseled extensively on SMOKING CESSATION, BODY MASS INDEX, EXERCISE. Specifically, the patient was instructed regarding the importance of smoking cessation, obesity, and exercise in the context of both chronic pain and overall health. 4. Procedures: Patient refuses 5. Consultations: Refer Dr. Delarosa 6. Investigations: None 7. Medications: Albuterol the patient will 15 pills of [place] 7.5 mg for severe uncontrolled pain if he needs to. This hopefully would decrease her usage of Motrin. 8. Disposition: Return to clinic as needed Objective - Vital Signs Vital signs: Vital Signs Temp 98.1 F 04/21/20 10:18 Pulse 96 04/21/20 10:18 Resp 16 04/21/20 10:18 BP 145/95 04/21/20 10:18 Pulse Ox 100 04/21/20 10:18
== END | disposition home or self-care (01) ==
LOC: PNWHC3 10:09
PROVIDERS: ATTEND Anesthesiology
DX: M51.36 Other intervertebral disc degeneration, lumbar region (principal); M47.816 Spondylosis without myelopathy or radiculopathy, lumbar region; E66.01 Morbid (severe) obesity due to excess calories; Z79.891 Long term (current) use of opiate analgesic; Z79.899 Other long term (current) drug therapy
CPT/HCPCS: 99211

== ENCOUNTER → 2020-10-14 | Outpatient (CLI) | payer OTHER ==
--- NOTE | 2020-10-14 09:42 | US ---
EXAMINATION TYPE: US abdomen complete DATE OF EXAM: 10/14/2020 COMPARISON: US 2016 CLINICAL HISTORY: R94.5 Abnormal results of liver function studies. Elevated liver enzymes, history o f cholecystectomy EXAM MEASUREMENTS: Liver Length: 19.8 cm. Normal less than 15.5 cm. CBD: 0.5 cm Spleen: 11.9 cm Right Kidney: 12.6 x 6.1 x 5.6 cm Left Kidney: 12.1 x 5.7 x 5.5 cm Difficult and limited study due to patient body habitus Pancreas: visualized portions wnl, limited by overlying midline bowel gas Liver: enlarged, increased attenuation, decreased visualization of vessels suggestive of fatty infil trate Gallbladder: surgically absent Evidence for sonographic Sheth's sign: no CBD: visualized portions wnl, limited by overlying bowel gas Spleen: wnl Right Kidney: wnl Left Kidney: wnl Upper IVC: wnl Abd Aorta: prox and mid portions wnl, distal obscured by overlying midline bowel gas IMPRESSION: 1. Moderate fatty infiltration of liver. Hepatomegaly is present.
== END | disposition home or self-care (01) ==
LOC: RADUSWWP 08:06
PROVIDERS: ATTEND Family Medicine
DX: K76.0 Fatty (change of) liver, not elsewhere classified (principal); R16.0 Hepatomegaly, not elsewhere classified; Z90.49 Acquired absence of other specified parts of digestive tract
CPT/HCPCS: 76700

== ENCOUNTER → 2021-04-06 | Outpatient (CLI) | payer OTHER ==
[2021-04-06 11:23] LABS: Potassium 4.8 mmol/L (3.5-5.1)
[2021-04-06 11:26] LABS: HCT 42.7 % (34.0-46.0); HGB 14.3 gm/dL (11.4-16.0); MCH 29.6 pg (25.0-35.0); MCHC 33.5 g/dL (31.0-37.0); MCV 88.3 fL (80.0-100.0); Mean Platelet Volume 7.2; Platelet Count 363 k/uL (150-450); RBC 4.84 m/uL (3.80-5.40); RDW 14.2 % (11.5-15.5); WBC 9.2 k/uL (3.8-10.6)
[2021-04-06 14:24] LABS: Eosinophils # (M) 0.18 k/uL (0-0.7); Monocytes # (M) 0.55 k/uL (0-1.0); Neutrophils # (M) 7.27 k/uL (1.3-7.7); Neutrophils % (M) 79 %; Nucleated Red Blood Cells 0 /100 WBC (0-0); Total Cells Counted 100
== END | disposition home or self-care (01) ==
LOC: LABPAT 09:28
PROVIDERS: ATTEND Orthopaedic Surgery Hand Surgery
DX: Z01.812 Encounter for preprocedural laboratory examination (principal); G56.01 Carpal tunnel syndrome, right upper limb
CPT/HCPCS: 80051; 85025

== ENCOUNTER 2021-04-08 06:43 | Day surgery (SDC) | payer OTHER ==
[2021-04-03 15:10] VITALS: BMI 36.5
--- NOTE | 2021-04-06 09:20 | P.HPOR ---
History of Present Illness H&P Date: 04/06/21 Chief Complaint: Right Carpal Tunnel Syndrome, Right Small Finger Trigger Finger Subjective: This is a 50 year old female that presents today for initial evaluation regarding a several year worsening history of bilateral hand paresthesias and a one month history of pain, triggering and locking of her right small finger. The patient states her numbness involves the thumb, index, and middle fingers predominantly. Her numbness has now become constant and she has noticed some weakness associated with her symptoms. She complains of night time paresthesias as well. She denies any other areas of pain/paresthesias. Physical Examination: RUE: AIN/PIN/Radial/Ulnar/Median motor intact. Radial/Ulnar/Median SILT. 2+/4 Radial/Ulnar pulses palpated. TTP over A1 Dima with pain/locking/clicking at base of small finger with flexion/extension. Positive Durkan's compression. 4+/5 APB, 5/5 FDI. Negative CMC grind, negative finkelsteins. Wrist F/E 80/80. LUE: AIN/PIN/Radial/Ulnar/Median motor intact. Radial/Ulnar/Median SILT. 2+/4 Radial/Ulnar pulses palpated. Positive Durkan's compression. 5/5 APB, 5/5 FDI. Negative CMC grind, Negative finkelsteins. Wrist F/E 90/85. Impression: 1.) B/L Carpal tunnel syndrome 2.) Right small finger trigger finger Plan: Diagnosis and treatment options were discussed with the patient. We discussed non-operative vs operative treatment regarding her long standing carpal tunnel syndrome. Due to the duration of her symptoms and the persistent numbness and increasing nocturnal symptoms I recommend carpal tunnel release. We discussed the possibility of a right small finger A1 dima release at the same time and she wishes to have them both taken care of at the same time. Risks of surgery including bleeding, damage to surrounding tissue, need for further surgery, persistent numbness were discussed. The patient was agreeable with this plan of action. She is a type 2 diabetic and states she believes her blood sugars are under control. She will obtain PCP clearance prior to surgery and we will tentatively schedule a right small finger A1 dima release and right endoscopic/possible open carpal tunnel release in the near future. Followed by a left carpal tunnel release at a later date. -Remi Coleman DO Orthopedic Hand/Upper Extremity Surgeon Past Medical History Past Medical History: Diabetes Mellitus, Hyperlipidemia, Hypertension, Osteoarthritis (OA) Additional Past Medical History / Comment(s): Restless Leg Syndrome, chronic back pain, SEASONAL ALLERGIES, SOB. History of Any Multi-Drug Resistant Organisms: MRSA Date of last positivie culture/infection: 2010 MDRO Source:: arm Past Surgical History: Section, Cholecystectomy, Tubal Ligation Additional Past Surgical History / Comment(s): Section X3, PAIN CLINIC PROCEDURES. Past Anesthesia/Blood Transfusion Reactions: Postoperative Nausea & Vomiting (PONV) Additional Past Anesthesia/Blood Transfusion Reaction / Comment(s): Severe Claustrophobia. Past Psychological History: ADD/ADHD, Anxiety Smoking Status: Current every day smoker Past Alcohol Use History: Occasional Additional Past Alcohol Use History / Comment(s): Started smoking at age 16, smokes <1 ppd. Past Drug Use History: Marijuana Additional Drug Use History / Comment(s): Daily Marijuana use-INSTRUCTED TO HOLD AT LEAST 24 HOURS PRIOR TO PROCEDRE. - Past Family History Sister(s) Family Medical History: Cancer Father Family Medical History: Cancer Mother Family Medical History: Cancer Additional Family Medical History / Comment(s): . Medications and Allergies Home Medications Medication Instructions Recorded Confirmed Type metFORMIN HCL [Glucophage] 1,000 mg PO BID 01/21/19 04/03/21 History Dextroamphetamine/Amphetamine 20 mg PO BID 11/05/19 04/03/21 History [Adderall] rOPINIRole HCL [Requip] 1 mg PO BID 11/05/19 04/03/21 History Ibuprofen [Motrin Ib] 800 mg PO BID PRN 11/08/19 04/03/21 History Atorvastatin [Lipitor] 20 mg PO DAILY 02/19/20 04/03/21 History Glimepiride [Amaryl] 1 mg PO AC-BRKFST 02/19/20 04/03/21 History Loratadine [Claritin] 10 mg PO DAILY 02/19/20 04/03/21 History Albuterol Inhaler [Ventolin Hfa 1 puff INHALATION DIRECTED PRN 04/03/21 04/03/21 History Inhaler] HYDROcodone/APAP 5-325MG [[place] 1 tab PO TID 04/03/21 04/03/21 History 5-325] Metoprolol Tartrate 25 mg PO BID 04/03/21 04/03/21 History lisinopriL [Zestril] 5 mg PO QAM 04/03/21 04/03/21 History Allergies Allergy/AdvReac Type Severity Reaction Status Date / Time No Known Allergies Allergy Verified 04/03/21 14:53 Physical Examination Osteopathic Statement: *. No significant issues noted on an osteopathic structural exam other than those noted in the History and Physical/Consult.
[2021-04-08] MEDS ORDERED: SCOPOLAMINE 1.5MG/72HR PATCH TRANSDERM ONE (06:54)
[2021-04-08] MEDS ORDERED: MIDAZOLAM 2 MG/2 ML VIAL IV PRN (06:54)
[2021-04-08] MEDS ORDERED: DEXAMETHASONE SOD PHOSPHATE 4 MG/ML 1 ML VIAL IV ONE (06:54)
[2021-04-08] MEDS ORDERED: LACTATED RINGERS 1,000 ML IV SCH (06:54)
[2021-04-08] MEDS ORDERED: ONDANSETRON 4 MG/2 ML VIAL IVP ONE (06:54)
[2021-04-08] MEDS ORDERED: HYDROmorphone 0.5 MG/0.5 ML SYRINGE IVP PRN (07:00)
[2021-04-08 07:19] VITALS: TEMP 95.6
[2021-04-08 07:36] LABS: Glucose,Whole Blood 214 mg/dL (75-99)
[2021-04-08] MEDS ORDERED: BUPIVACAINE (PF) 0.5% 30 ML VIAL SQ ONE ×2 (07:53→08:05)
[2021-04-08] MEDS ORDERED: .fentaNYL (PF) 50 MCG/ML AMP ONE (07:54)
[2021-04-08] MEDS ORDERED: LIDOCAINE 1% INJ 10MG/ML (20 ML MDV) ONE (07:54)
[2021-04-08] MEDS ORDERED: MIDAZOLAM 2 MG/2 ML VIAL ONE (07:54)
[2021-04-08] MEDS ORDERED: PROPOFOL 10 MG/ML 20 ML VIAL IV ONE (07:54)
[2021-04-08] MEDS ORDERED: LIDOCAINE 1% INJ 10MG/ML (20 ML MDV) SQ ONE ×2 (07:54→08:05)
[2021-04-08 08:56] VITALS: RESP 16
[2021-04-08 09:16] VITALS: BP 110/70; PULSE 78
--- NOTE | 2021-04-08 17:25 | P.OP ---
Date of Procedure: 04/08/21 Preoperative Diagnosis: Right Carpal Tunnel Syndrome Postoperative Diagnosis: Right Carpal Tunnel Syndrome Procedure(s) Performed: Right Endoscopic Carpal Tunnel Release Anesthesia: MAC Surgeon: Remi Coleman Rn Clinical Resource #1: Ganesh Rose Estimated Blood Loss (ml): 0 Pathology: none sent Condition: stable Disposition: PACU Operative Findings: This is a 50 year old female who presents today for a right endoscopic carpal tunnel release after having failed conservative treatment in the past. Risks and benefits of surgery were discussed with the patient including bleeding, damage to surrounding tissue, infection, need to convert to open procedure, need for further surgery as well as risks of anesthesia including pulmonary embolism and even and the patient wished to proceed with surgical intervention. The patients was seen in the pre-operative area by myself. Consent and H&P were completed and updated. The correct extremity was marked in the pre-operative area by myself and all other questions were answered. Operative Narrative: The patient was brought to the operating room by the department of anesthesia. They remained on the portable stretcher and a rolling hand table was brought to the side of the operative extremity. Pre-operative time out was performed indicating the correct patient, procedure and laterality. All in the room agreed. The patient was then drifted off to sleep by the department of anesthesia. MAC anesthesia was utilized and a 50:50 mixture of 1% Lidocaine and 0.5% bupivacaine was injected into the subcutaneous tissues of the palmar skin, 8ccs total. A nonsterile tourniquet was then applied to the operative extremity and the right upper extremity was then prepped and draped in normal sterile fashion. The operative extremity was the exsanguinated with an esmarch bandage and the tourniquet was inflated to 250mmHg. 15 blade scalpel was utilized to make a transverse incision on the palmar skin just ulnar to the palmaris longus tendon at the level of the distal wrist crease. Ragnell retractor was then placed radially and blunt dissection was performed to reveal the distal forearm fascia. This was lifted with fine Matheus pick ups and Littler tenotomy scissors were then used to open the forearm fascia transversely and a double skin hook was then placed. Hamate finder was placed into the carpal tunnel and then sequential sized dilators were inserted followed by the synovial elevator to separate the flexor tenosynovium from the undersurface of the transverse carpal ligament and a washboard texture was felt. The MicroAire endoscopic carpal tunnel release system gun was the then inserted into the carpal tunnel hugging the deep portion of the transverse carpal ligament in line with the base of the ring finger. Transverse fibers of the ligament were directly visualized. Pressure was applied on the palm to reveal the distal extent of the transverse carpal ligament. The blade was then deployed and the distal half of the transverse carpal ligament was released. The scope was then brought distal again and remaining transverse fibers were incised with the blade. The proximal half of the transverse carpal ligament was then divided and again the scope was advanced distal and remaining transverse fibers were incised with the blade. The radial and ulnar leaflets were directly visualized and mobile consistant with complete release. Tenotomy scissors were then utili zed to release the remaining distal forearm fascia under direct visualization taking care to preserve the palmar cutaneous branch of the median nerve. Skin closure was performed with interrupted 4-0 Monocryl suture followed by Mastisol and steri strips. Sterile dressing was applied consisting of adaptic, 4x4s, Webril, and an roshan bandage. Tourniquet was let down and the hand immediately was well perfused. The patient was then woken by the department of anesthesia and transferred to PACU in stable condition. -Remi Coleman DO Hand/Upper Extremity Orthopedic Surgeon
== END 2021-04-08 09:20 | disposition home or self-care (01) ==
LOC: OR 06:43
PROVIDERS: ATTEND Orthopaedic Surgery Hand Surgery
DX: G56.01 Carpal tunnel syndrome, right upper limb (principal); M65.351 Trigger finger, right little finger; E11.9 Type 2 diabetes mellitus without complications; E78.5 Hyperlipidemia, unspecified; I10 Essential (primary) hypertension; M19.90 Unspecified osteoarthritis, unspecified site; F17.210 Nicotine dependence, cigarettes, uncomplicated; F90.9 Attention-deficit hyperactivity disorder, unspecified type; F41.9 Anxiety disorder, unspecified; G25.81 Restless legs syndrome; M54.9 Dorsalgia, unspecified; G89.29 Other chronic pain; Z79.899 Other long term (current) drug therapy; Z79.84 Long term (current) use of oral hypoglycemic drugs
CPT/HCPCS: 29848; J2250; J0690; J2405; J2001; J3010; J2704

== ENCOUNTER 2021-10-01 07:58 | Day surgery (SDC) | payer OTHER ==
[2021-09-29 14:32] VITALS: BMI 38.0
--- NOTE | 2021-10-01 07:44 | P.GSHP ---
History of Present Illness H&P Date: 10/01/21 CHIEF COMPLAINT: Colon screen HISTORY OF PRESENT ILLNESS: The patient is a 51-year-old female who presents for colon screen. Lower endoscopy was offered for further evaluation and management. PAST MEDICAL HISTORY: Please see list. PAST SURGICAL HISTORY: Please see list. MEDICATIONS: Please see list. ALLERGIES: Please see list. SOCIAL HISTORY: No illicit drug use FAMILY HISTORY: No reports of Crohn disease or ulcerative colitis. REVIEW OF ORGAN SYSTEMS: CONSTITUTIONAL: No reports of fevers or chills. PHYSICAL EXAM: VITAL SIGNS: Stable GENERAL: Well-developed pleasant in no acute distress. HEENT: No scleral icterus. Extraocular movements grossly intact. Moist buccal mucosa. NECK: Supple without lymphadenopathy. CHEST: Unlabored respirations. Equal bilateral excursions. CARDIOVASCULAR: Regular rate and rhythm. Distal 2+ pulses. ABDOMEN: Soft, nontender, nondistended. MUSCULOSKELETAL: No clubbing, cyanosis, or edema. ASSESSMENT: 1. Colon screen. PLAN: 1. Recommend proceeding with a lower endoscopy Past Medical History Past Medical History: Diabetes Mellitus, Hyperlipidemia, Hypertension, Osteoarthritis (OA) Additional Past Medical History / Comment(s): Restless Leg Syndrome, chronic b ack pain, SEASONAL ALLERGIES, hx bells palsy, irregular bowel movements, amemia, "kidneys not working like the should' History of Any Multi-Drug Resistant Organisms: MRSA Date of last positivie culture/infection: 2010 MDRO Source:: rt arm Past Surgical History: Section, Cholecystectomy, Tubal Ligation Additional Past Surgical History / Comment(s): Section X3, PAIN CLINIC PROCEDURES, right endoscopic carpal tunnel release, right small finger trigger release Past Anesthesia/Blood Transfusion Reactions: Postoperative Nausea & Vomiting (PONV) Additional Past Anesthesia/Blood Transfusion Reaction / Comment(s): Severe Claustrophobia. Smoking Status: Current every day smoker - Past Family History Sister(s) Family Medical History: Cancer Father Family Medical History: Cancer Mother Family Medical History: Cancer Additional Family Medical History / Comment(s): . Medications and Allergies Home Medications Medication Instructions Recorded Confirmed Type metFORMIN HCL [Glucophage] 1,000 mg PO BID 01/21/19 09/29/21 History Dextroamphetamine/Amphetamine 20 mg PO BID 11/05/19 09/29/21 History [Adderall] rOPINIRole HCL [Requip] 1 mg PO BID 11/05/19 09/29/21 History Atorvastatin [Lipitor] 20 mg PO HS 02/19/20 09/29/21 History Glimepiride [Amaryl] 2 mg PO AC-BRKFST 02/19/20 09/29/21 History Albuterol Inhaler [Ventolin Hfa 1 puff INHALATION DIRECTED PRN 04/03/2109/07 History Inhaler] HYDROcodone/APAP 5-325MG [[place] 1 tab PO TID PRN 04/03/21 09/29/21 History 5-325] Metoprolol Tartrate 25 mg PO BID 04/03/21 09/29/21 History lisinopriL [Zestril] 5 mg PO QAM 04/03/21 09/29/21 History Ibuprofen 800 mg PO Q8H PRN 09/29/21 09/29/21 History Loratadine [Claritin] 10 mg PO DAILY 09/29/21 09/29/21 History Allergies Allergy/AdvReac Type Severity Reaction Status Date / Time adhesive tape Allergy red itchy Verified 09/29/21 14:20 skin, rash
[2021-10-01] MEDS ORDERED: LACTATED RINGERS 1,000 ML IV SCH (08:23)
[2021-10-01 08:30] VITALS: RESP 18; TEMP 97.2
[2021-10-01] MEDS ORDERED: LIDOCAINE 1% (10MG/ML) FOR IV START INTRADERMA ONE (08:45)
[2021-10-01 08:51] LABS: Glucose,Whole Blood 150 mg/dL (75-99)
[2021-10-01] MEDS ORDERED: LIDOCAINE 2% INJ 20 MG/ML (2 ML VIAL) ONE (08:59)
[2021-10-01] MEDS ORDERED: PROPOFOL 10 MG/ML 20 ML VIAL IV ONE (08:59)
--- NOTE | 2021-10-01 09:47 | P.PCN ---
Date of Procedure: 10/01/21 Description of Procedure: PREOPERATIVE DIAGNOSIS: Colonoscopy screening POSTOPERATIVE DIAGNOSIS: Tubular adenoma sigmoid colon Tubular adenoma rectum Sigmoid diverticulosis Internal hemorrhoids, grade 2 OPERATION: Colonoscopy to the ileocecal valve and appendiceal orifice, cecum Colonoscopy with hot snare polypectomy Colonoscopy with cold forceps biopsy SURGEON: Elizabeth Maddox MD. ANESTHESIA: MAC. INDICATIONS: The patient is an 51-year-old female who presents for first colonoscopy. Benefits and risks were described and informed consent was obtained. DESCRIPTION OF PROCEDURE: The patient had undergone Sutab prep. The patient had been brought into the operating room and laid in the left lateral decubitus position. After adequate intravenous sedation, the rectum was examined with 2% lidocaine jelly. External hemorrhoids were encountered. The rectal tone was within normal limits. No lesions were palpated in the rectal vault. An Olympus colonoscope was advanced until the cecum, ileocecal valve and appendiceal orifice were clearly viewed. The prep was good. Sigmoid diverticulosis was encountered. Colonic polyps were found and removed. No evidence of focal colitis was found. Retroflexion of the scope demonstrated grade 2 internal hemorrhoids without active bleeding or infla mmation. The colon was desufflated. The patient had tolerated the procedure well. Withdrawal time was over 6 minutes. FINDINGS: Aronchick preparation quality scale 2 (1-5) Internal hemorrhoids, grade 2 External hemorrhoids, grade 2 No arteriovenous malformations. Sigmoid diverticulosis Removal of 5 polyps: - Snare polypectomy 25 cm from the anal verge 2, 5 to 10 mm tubulovillous adenoma polyp, sigmoid colon - Snare polypectomy 20 cm from the anal verge, 8 mm flat villous adenoma polyp, sigmoid colon - Snare polypectomy 30 cm from the anal verge, 5 mm flat villous adenoma polyp, descending colon - Cold forceps biopsy at the rectum, 4 mm polyp. No focal colitis. RECOMMENDATIONS: Repeat colonoscopy in 2 years, 2023 Plan - Discharge Summary New Discharge Prescriptions: Continue metFORMIN HCL [Glucophage] 1,000 mg PO BID rOPINIRole HCL [Requip] 1 mg PO BID Dextroamphetamine/Amphetamine [Adderall] 20 mg PO BID Glimepiride [Amaryl] 2 mg PO AC-BRKFST Atorvastatin [Lipitor] 20 mg PO HS Metoprolol Tartrate 25 mg PO BID HYDROcodone/APAP 5-325MG [[place] 5-325] 1 tab PO TID PRN PRN Reason: Pain Albuterol Inhaler [Ventolin Hfa Inhaler] 1 puff INHALATION DIRECTED PRN PRN Reason: Shortness Of Breath lisinopriL [Zestril] 5 mg PO QAM Loratadine [Claritin] 10 mg PO DAILY Ibuprofen 800 mg PO Q8H PRN PRN Reason: Pain Discharge Medication List metFORMIN HCL [Glucophage] 1,000 mg PO BID 01/21/19 [History] Dextroamphetamine/Amphetamine [Adderall] 20 mg PO BID 11/05/19 [History] rOPINIRole HCL [Requip] 1 mg PO BID 11/05/19 [History] Atorvastatin [Lipitor] 20 mg PO HS 02/19/20 [History] Glimepiride [Amaryl] 2 mg PO AC-BRKFST 02/19/20 [History] Albuterol Inhaler [Ventolin Hfa Inhaler] 1 puff INHALATION DIRECTED PRN 04/03/21 [History] HYDROcodone/APAP 5-325MG [[place] 5-325] 1 tab PO TID PRN 04/03/21 [History] Metoprolol Tartrate 25 mg PO BID 04/03/21 [History] lisinopriL [Zestril] 5 mg PO QAM 04/03/21 [History] Ibuprofen 800 mg PO Q8H PRN 09/29/21 [History] Loratadine [Claritin] 10 mg PO DAILY 09/29/21 [History] Follow up Appointment(s)/Referral(s): Elizabeth Maddox MD [STAFF PHYSICIAN] - As Needed Patient Instructions/Handouts: Colorectal Polyps (GEN), *Surgery [facility] - (Anesthesia) Endoscopy Discharge Instructions, Diverticulosis Diet (GEN), Diverticulosis (DC) Activity/Diet/Wound Care/Special Instructions: Repeat colonoscopy in 2 years, 2023 Discharge Disposition: HOME SELF-CARE
[2021-10-01 10:03] VITALS: BP 146/90; PULSE 77
== END 2021-10-01 10:38 | disposition home or self-care (01) ==
LOC: ORWHC2ENDO 07:58
PROVIDERS: ATTEND Surgery Plastic and Reconstructive Surgery
DX: D12.3 Benign neoplasm of transverse colon (principal); D12.5 Benign neoplasm of sigmoid colon; D12.8 Benign neoplasm of rectum; E11.9 Type 2 diabetes mellitus without complications; E78.5 Hyperlipidemia, unspecified; F17.200 Nicotine dependence, unspecified, uncomplicated; G25.81 Restless legs syndrome; I10 Essential (primary) hypertension; K57.30 Diverticulosis of large intestine without perforation or abscess without bleeding; K64.8 Other hemorrhoids; M19.90 Unspecified osteoarthritis, unspecified site; Z79.84 Long term (current) use of oral hypoglycemic drugs; Z91.048 Other nonmedicinal substance allergy status
CPT/HCPCS: 45380; 45385; 88305; J2704; J2001

== ENCOUNTER → 2022-05-19 | Outpatient (CLI) | payer OTHER ==
[2022-05-19 13:03] VITALS: BP 120/81; PULSE 98; RESP 18; TEMP 98.1
--- NOTE | 2022-05-19 14:34 | P.PAINPG ---
PQRS Measure Charge Sheet Comment: A 51 yr old female with a history of severe and chronic low back pain secondary to lumbar DDD and spondylosis with facet arthropathy without myelopathy presents today for R LBP. Pain level is provoked at 8 /10 in intensity, constant, localized in the lumbar spine, burning in character w shooting towards the BL hips, buttocks and BLEs. Pain is provoked by bending, lifting. Pain is alleviated with PT x 2 wks but was ineffective in Jan 2022, heat, ice occasionally, meds (Ibu), laying supine, sitting and rest. Interventional pain procedures completed include BL SI (ineffective), BL MBB (ineffective) Patient is currently on Ibuprofen Patient denies any side effects of the medication(s), denies excessive drowsiness or sleepiness, denies suicidal ideation and reports that the current pain medication is helping to control the pain and improve activities of daily living. Patient denies any motor or sensory deficits. Patient denies any fever or night sweats, denies any change in the bowel movements or urination. Physical Examination: -Constitutional: Cooperative. Not in acute distress . - Neurologic: Cranial nerve II to XII intact. No focal neurological deficits. - Psychatric: Alert & oriented x 3. Matching mood & appropriate affect. Judgment and insight intact. - Musculoskeletal: Cervical spine: Muscle bulk/ tone/ strength in the bilateral upper extremities normal Vertebral body tenderness to palpation over Spurling test positive Distraction test positive Facet loading test positive Thoracic spine Muscle bulk / tone/ strength in the bilateral paraspinal muscles normal Vertebral body tender to palpation over Facet loading test positive Lumbar spine: Motor bulk/ tone/ strength lower extremities , thigh and legs : 5/5 Deep tendon reflexes : Normal Knee Jerk. Normal Ankle Jerk . Vertebral body tenderness to palpation over L5 Lumbar Facet Loading Test positive Straight Leg Raise: positive at 30 degrees right side/ left side Gaenslen's Test positive Sacral spine : Severe tenderness over the Sacroiliac joint: right side / left side Range of motion: Flexion of the lumbar spine <60 degrees Range of motion: Extension of the lumbar spine <20 degrees Gaenslen's Test positive Darius test: positive right side / left side Thigh Thrust Test Sacral Thrust Test Assessment and plan: Chronic low back pain secondary to lumbar degenerative disc disease, spondylosis with facet arthropathy without myelopathy Recommendation of TACHO L5-S1. May need a series of injections, up to 3 within a 6 mo period, for optimal pain relief. Risks, benefits of procedure discussed and pt verbalized understanding. Admits to anticoagulant use or medical history of diabetes. Protocol for discontinuation/ continuation of medications isaak procedure discussed. All patient questions answered I have spent less than 30 minutes on patient care today. Dr Olson was available by phone for the evaluation of this patient. The time was used to review the medical records including relevant urine studies and Prescription history (MAPs), review of the available imaging, evaluation and examination of the patient, coordination of care with the medical staff and if applicable referring physicians, as well as creation of the medical record PQRS Narrative: Smoking Status Current every day smoker Hx Alcohol Use (MH) No Home Medications: Ambulatory Orders metFORMIN HCL [Glucophage] 1,000 mg PO BID 01/21/19 Dextroamphetamine/Amphetamine [Adderall] 20 mg PO BID 11/05/19 rOPINIRole HCL [Requip] 1 mg PO BID 11/05/19 Atorvastatin [Lipitor] 20 mg PO HS 02/19/20 Glimepiride [Amaryl] 2 mg PO AC-BRKFST 02/19/20 Albuterol Inhaler [Ventolin Hfa Inhaler] 1 puff INHALATION DIRECTED PRN 04/03/21 HYDROcodone/APAP 5-325MG [[place] 5-325] 1 tab PO TID PRN 04/03/21 Metoprolol Tartrate 25 mg PO BID 04/03/21 lisinopriL [Zestril] 5 mg PO QAM 04/03/21 Ibuprofen 800 mg PO Q8H PRN 09/29/21 Loratadine [Claritin] 10 mg PO DAILY 09/29/21 Controlled Substance Measures - Controlled Substance Measures Is patient prescribed a controlled substance at discharge?: No
== END ==
LOC: PNWHC3 12:34
PROVIDERS: ATTEND Specialist
DX: M47.816 Spondylosis without myelopathy or radiculopathy, lumbar region (principal); M51.36 Other intervertebral disc degeneration, lumbar region; E11.9 Type 2 diabetes mellitus without complications; Z79.84 Long term (current) use of oral hypoglycemic drugs; Z91.048 Other nonmedicinal substance allergy status; F17.200 Nicotine dependence, unspecified, uncomplicated
CPT/HCPCS: 99211

== ENCOUNTER 2022-08-26 09:19 | Day surgery (SDC) | payer OTHER ==
[2022-08-25 08:17] VITALS: BMI 36.5
[~2022-08-26 09:19] MED LIST changes: +LIDOCAINE 1% (10MG/ML) FOR IV START INTRADERMA PRN
[2022-08-26 09:47] VITALS: TEMP 97.1
[2022-08-26 10:02] LABS: Glucose,Whole Blood 175 mg/dL (70-110)
[2022-08-26] MEDS ORDERED: IOPAMIDOL M200 10 ML VIAL ONE (10:28)
[2022-08-26] MEDS ORDERED: fentaNYL (PF) 50 MCG/ML 2 ML AMP ONE (10:28)
[2022-08-26] MEDS ORDERED: methylPREDNISolone ACETATE 40 MG/ML 1 ML VIAL ONE (10:28)
[2022-08-26] MEDS ORDERED: MIDAZOLAM 2 MG/2 ML VIAL ONE (10:28)
--- NOTE | 2022-08-26 10:49 | P.PCN ---
Date of Procedure: 08/26/22 Procedure(s) Performed: PREOPERATIVE DIAGNOSIS: 1-Lumbar radiculopathy . 2-lumbar degenerative disc disease. 3-lumbar spondylosis with lumbar facet arthropathy without myelopathy POSTOPERATIVE DIAGNOSIS: 1-lumbar radiculopathy. 2-lumbar degenerative disc disease. 3-lumbar spondylosis with facet arthropathy without myelopathy PROCEDURE 1. Transforaminal epidural steroid injection under fluoroscopic guidance at bilateral L5-S1 level. (Fluoroscopy images stored on file in the radiology Department ) 2. Lumbar epidurogram . ANESTHESIA: Local with 1% lidocaine 3 ml , moderate sedation with intravenous Versed 2 mg and fentanyle 100 micrograms. Sedation start time : 1030 . Sedation. stop time : 1045 . EBL: Minimal PROCEDURE INDICATION: The patient with low back pain and radiculopathy symptoms unresponsive to conservative treatment. PROCEDURE DESCRIPTION / TECHNIQUE: The patient was seen and identified in the preoperative area. Risks, benefits, complications, and alternatives were discussed with the patient. The patient agreed to proceed with the procedure and signed the consent. IV was started, and vital signs were stable. Patient was taken to the OR and time out was completed. The patient was placed in the prone position on procedure table and a pillow was placed under the abdomen to reduce lumbar lordosis. The lumbosacral area was prepped and draped in the usual sterile fashion. Critical pause was taken. Vital signs were closely monitored during the procedure. Conscious sedation was used during the procedure to decrease patient s anxiety. Using oblique fluoroscopy, the chin of the ``Merlin dog at right L5-S1 level was identified, and the skin and deeper tissues just below was localized with 1% lidocaine. Subsequently, a 20-gauge 6-inch spinal needle was advanced under a tunneled view fluoroscopic guidance just underneath the chin of the ``Merlin dog at the right L5-S1 Under lateral fluoroscopy, the needle was then advanced to the posterior border of the interforaminal space. After negative aspiration of CSF and blood and with no paresthesias, 1 mL Isovue 300 contrast dye was injected excellent epidurogram and outlining of the nerve root Subsequently, 3 mL of block solution containing 20 mg Depo-Medrol and 2 mL of 0.9% normal saline PF was injected. Needle was removed and the same procedure was repeated at the left L5-S1 level . At the end of the procedure, skin was cleansed, and bandages were applied. COMPLICATIONS:none DISPOSITION / PLANS: The patient was placed in a supine position and transferred to the recovery area in a stable condition for observation. There was no evidence of lower extremity motor or sensory deficit after the procedure. Patient was discharged from the recovery room after meeting discharge criteria. Home discharge instructions were given to the patient by the staff. The patient was reexamined prior to discharge.
[2022-08-26] MEDS ORDERED: IV FLUID CONTINUATION 300 ML IV ONE (10:52)
--- NOTE | 2022-08-26 10:57 | FL ---
Intraoperative/procedural fluoroscopic services were provided for lumbar transforaminal epidural ster oid injection. Total fluoroscopy time is 16 seconds with a total of 2 submitted images to PACS. Total DAP [id number]. Please see the operative note for further details.
[2022-08-26 11:26] VITALS: BP 125/84; PULSE 78; RESP 18
== END 2022-08-26 11:27 | disposition home or self-care (01) ==
LOC: ORPAIN 09:19
PROVIDERS: ATTEND Specialist
DX: M51.16 Intervertebral disc disorders with radiculopathy, lumbar region (principal); M47.26 Other spondylosis with radiculopathy, lumbar region; Z88.8 Allergy status to other drugs, medicaments and biological substances
CPT/HCPCS: 99152; 64483; J2250; J1030; J3010; Q9966

== ENCOUNTER → 2022-09-16 | Outpatient (CLI) | payer OTHER ==
[2022-09-16 14:23] VITALS: BP 127/85; PULSE 91; RESP 118; TEMP 98
--- NOTE | 2022-09-16 14:31 | P.PAINPG ---
PQRS Measure Charge Sheet Comment: A 52 yr old female with a history of severe and chronic LBP secondary to lumbar DDD and spondylosis with facet arthropathy without myelopathy presents today for evaluation s/p BL TFESI L5-S1. Pt states she experienced 0 % pain relief x 2wks s/p procedure. Pain level is provoked at 7 /10 in intensity, constant, localized in the lumbar spine, dull/ achy in character w shooting towards the BLEs. Pain is provoked by standing for periods of 10 min or more. Pain is alleviated with PT x 3 sessions 6 mo ago, heat, ice, medications, topical, repositioning and rest. Interventional pain procedures completed include BL TFESI L5-S1 Patient is currently on Merom, Neurontin, Ibu Patient denies any side effects of the medication(s), denies excessive drowsiness or sleepiness, denies suicidal ideation and reports that the current pain medication is helping to control the pain and improve activities of daily living. Patient denies any motor or sensory deficits. Patient denies any fever or night sweats, denies any change in the bowel movements or urination. Physical Examination: -Constitutional: Cooperative. Not in acute distress . - Neurologic: Cranial nerve II to XII intact. No focal neurological deficits. - Psychatric: Alert & oriented x 3. Matching mood & appropriate affect. Judgment and insight intact. - Musculoskeletal: Cervical spine: Muscle bulk/ tone/ strength in the bilateral upper extremities normal Vertebral body tenderness to palpation over Spurling test positive Distraction test positive Facet loading test positive TTP Thoracic spine Muscle bulk / tone/ strength in the bilateral paraspinal muscles normal Vertebral body tender to palpation over Facet loading test positive TTP Lumbar spine: Motor bulk/ tone/ strength lower extremities , thigh and legs : 5/5 Deep tendon reflexes : Normal Knee Jerk. Normal Ankle Jerk . Vertebral body tenderness to palpation over Lumbar Facet Loading Test positive over BL L4-L5 L5-S1 Straight Leg Raise: positive at 30 degrees right side/ left side Gaenslen's Test positive Sacral spine : Severe tenderness over the Sacroiliac joint: right side / left side Range of motion: Flexion of the lumbar spine <60 degrees Range of motion: Extension of the lumbar spine <20 degrees Gaenslen's Test positive right side / left side Darius test: positive right side / left side Thigh Thrust Test positive right side / left side Sacral Thrust Test positive right side / left side Assessment and plan: Chronic LBP secondary to lumbar DDD, spondylosis with facet arthropathy without myelopathy Recommendation of BL facet block of the medial branches L4-L5, L5-S1 #1. May need a series of injections, up until RFA, for optimal pain relief. Risks, benefits of procedure discussed and pt verbalized understanding. Admits to anticoagulant use or medical history of diabetes. Protocol for discontinuation/ continuation of medications isaak procedure discussed. All questions answered. I have spent less than 30 minutes on patient care today. Dr Olson was available by phone for the evaluation of this patient. The time was used to review the medical records including relevant urine studies and Prescription history (MAPs), review of the available imaging, evaluation and examination of the patient, coordination of care with the medical staff and if applicable referring physicians, as well as creation of the medical record PQRS Narrative: Smoking Status Current every day smoker Hx Alcohol Use (MH) No Home Medications: Ambulatory Orders metFORMIN HCL [Glucophage] 1,000 mg PO BID 01/21/19 Dextroamphetamine/Amphetamine [Adderall] 30 mg PO BID 11/05/19 rOPINIRole HCL [Requip] 1 mg PO BID 11/05/19 Atorvastatin [Lipitor] 20 mg PO HS 02/19/20 Glimepiride [Amaryl] 2 mg PO AC-BRKFST 02/19/20 Albuterol Inhaler [Ventolin Hfa Inhaler] 1 puff INHALATION DIRECTED PRN 04/03/21 HYDROcodone/APAP 5-325MG [[place] 5-325] 1 tab PO TID PRN 04/03/21 Metoprolol Tartrate 25 mg PO BID 04/03/21 lisinopriL [Zestril] 5 mg PO QAM 04/03/21 Ibuprofen 800 mg PO Q8H PRN 09/29/21 Loratadine [Claritin] 10 mg PO DAILY 09/29/21 Dulaglutide [Trulicity] 0.75 mg SQ MO 06/15/22 Controlled Substance Measures - Controlled Substance Measures Is patient prescribed a controlled substance at discharge?: Yes
== END ==
LOC: PNWHC3 12:27
PROVIDERS: ATTEND Specialist
DX: G89.29 Other chronic pain (principal); M51.36 Other intervertebral disc degeneration, lumbar region; M47.816 Spondylosis without myelopathy or radiculopathy, lumbar region; F17.200 Nicotine dependence, unspecified, uncomplicated; Z91.048 Other nonmedicinal substance allergy status
CPT/HCPCS: 99211

== ENCOUNTER → 2022-11-15 | Outpatient (CLI) | payer OTHER | END | disposition home or self-care (01) | LOC: LABPAT 09:51 | PROVIDERS: ATTEND Orthopaedic Surgery | DX: Z01.812 Encounter for preprocedural laboratory examination (principal); Z22.322 Carrier or suspected carrier of Methicillin resistant Staphylococcus aureus; M47.816 Spondylosis without myelopathy or radiculopathy, lumbar region; M48.061 Spinal stenosis, lumbar region without neurogenic claudication; M43.16 Spondylolisthesis, lumbar region | CPT/HCPCS: 87070 ==

== ENCOUNTER 2022-12-07 05:41 | Observation (INO) | payer OTHER ==
[2022-12-01 11:45] VITALS: BMI 34.9
[~2022-12-07 05:41] MED LIST changes: +ACETAMINOPHEN TAB 500 MG TAB PO PRN; +GABAPENTIN 300 MG CAP PO PRN; -LACTATED RINGERS 1,000 ML IV SCH; -LIDOCAINE 1% (10MG/ML) FOR IV START INTRADERMA PRN; +ONDANSETRON 4 MG/2 ML VIAL IVP PRN; +TRANEXAMIC 1,000 MG/100ML-NACL 1,000 MG in SALINE 1 100ML.BAG IVPB PRN
[2022-12-07] MEDS ORDERED: MIDAZOLAM 2 MG/2 ML VIAL IV PRN (05:53)
--- NOTE | 2022-12-07 06:49 | P.HPOR ---
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 proceed as outlined above. I will be sure to keep you updated afterMs. John returns here for further follow-up. Thank you again for your referral. Please do not hesitate to contact me if you have any further questions. Signed and authenticated by: John Mobley Anitra Her [facility] [address] [place] [address] This message is confidential, intended only for the named recipient(s) and may contain information that is privileged or exempt from disclosure under applicable law. If you are not the intended recipient(s), you are notified that the dissemination, distribution or copying of this information is strictly prohibited. If you received this message in error, please notify the sender then delete this message. # SIGNED BY John Kasper (GOO)11/16/2022 06:44AM Past Medical History Past Medical History: Diabetes Mellitus, Hyperlipidemia, Hypertension, Osteoarthritis (OA), Supraventricular Tachycardia (SVT) Additional Past Medical History / Comment(s): Restless Leg Syndrome, chronic back pain, seasonal allergies., hx bells palsy with slight drooping at her eye., anemia., svt & cardiomyopathy (per cardiology hx). History of Any Multi-Drug Resistant Organisms: MRSA Date of last positivie culture/infection: 2010 MDRO Source:: rt arm Past Surgical History: Section, Cholecystectomy, Heart Catheterization, Orthopedic Surgery, Tubal Ligation Additional Past Surgical History / Comment(s): Section X3, PAIN CLINIC PROCEDURES, right endoscopic carpal tunnel release, right small finger trigger release. Past Anesthesia/Blood Transfusion Reactions: No Reported Reaction, Postoperative Nausea & Vomiting (PONV) Additional Past Anesthesia/Blood Transfusion Reaction / Comment(s): Severe Claustrophobia. Past Psychological History: ADD/ADHD, Anxiety Additional Psychological History / Comment(s): Claustrophobia. Smoking Status: Current every day smoker Past Alcohol Use History: None Reported Additional Past Alcohol Use History / Comment(s): Smokes < 1ppd., Started smoking at age 16. Past Drug Use History: Marijuana Additional Drug Use History / Comment(s): Marijuana daily - Past Family History Sister(s) Family Medical History: Cancer Father Family Medical History: Cancer Mother Family Medical History: Cancer Additional Family Medical History / Comment(s): . Medications and Allergies Home Medications Medication Instructions Recorded Confirmed Type metFORMIN HCL [Glucophage] 1,000 mg PO BID 01/21/19 12/01/22 History Dextroamphetamine/Amphetamine 30 mg PO BID 11/05/19 12/01/22 History [Adderall] rOPINIRole HCL [Requip] 1 mg PO BID 11/05/19 12/01/22 History Atorvastatin [Lipitor] 20 mg PO HS 02/19/20 12/01/22 History Glimepiride [Amaryl] 1 mg PO AC-BRKFST 02/19/20 12/01/22 History HYDROcodone/APAP 5-325MG [[place] 1 tab PO BID PRN 04/03/21 12/01/22 History 5-325] lisinopriL [Zestril] 5 mg PO QAM 04/03/21 12/01/22 History Ibuprofen 800 mg PO Q8H PRN 09/29/21 12/01/22 History Loratadine [Claritin] 10 mg PO DAILY 09/29/21 12/01/22 History Dulaglutide [Trulicity] 3 mg SQ Q7D 06/15/22 12/01/22 History Albuterol Sulfate [Proair 1 puff INHALATION Q6H PRN 11/11/22 12/01/22 History Respiclick] Gabapentin 300 mg PO TID 11/11/22 12/01/22 History Metoprolol Succinate [Toprol XL] 50 mg PO DAILY 12/01/22 12/01/22 History Allergies Allergy/AdvReac Type Severity Reaction Status Date / Time adhesive tape Allergy red itchy Verified 12/07/22 06:30 skin, rash Physical Examination Osteopathic Statement: *. No significant issues noted on an osteopathic structural exam other than those noted in the History and Physical/Consult.
[2022-12-07] MEDS: LACTATED RINGERS 1,000 ML IV SCH (06:54)
[2022-12-07] MEDS ORDERED: LACTATED RINGERS 1,000 ML IV ONE ×2 (06:54→10:13)
[2022-12-07 06:55] LABS: Glucose,Whole Blood 104 mg/dL (70-110)
[2022-12-07] MEDS ORDERED: DEXAMETHASONE SOD PHOSPHATE 4 MG/ML 1 ML VIAL IV ONE (06:58)
[2022-12-07] MEDS ORDERED: KETAMINE 10 MG/ML 20 ML VIAL ONE (07:51)
[2022-12-07] MEDS ORDERED: GLYCOPYRROLATE 0.2 MG/ML 2 ML VIAL ONE (07:51)
[2022-12-07] MEDS ORDERED: TRANEXAMIC 1,000 MG/100ML-NACL PREMIX BAG ONE (07:51)
[2022-12-07] MEDS ORDERED: LIDOCAINE 2% INJ 20 MG/ML (2 ML VIAL) ONE (07:51)
[2022-12-07] MEDS ORDERED: MIDAZOLAM 2 MG/2 ML VIAL ONE (07:51)
[2022-12-07] MEDS ORDERED: PHENYLEPHRINE 10 MG/ML VIAL ONE (07:51)
[2022-12-07] MEDS ORDERED: fentaNYL (PF) 50 MCG/ML 2 ML AMP ONE (07:51)
[2022-12-07] MEDS ORDERED: NEOSTIGMINE 1 MG/ML 10 ML VIAL ONE (07:51)
[2022-12-07] MEDS ORDERED: PROPOFOL 10 MG/ML 20 ML VIAL IV ONE (07:51)
[2022-12-07] MEDS ORDERED: SUCCINYLCHOLINE CHLORIDE 200 MG/10 ML VIAL IV ONE (07:51)
[2022-12-07] MEDS ORDERED: ROCURONIUM 10 MG/ML (5 ML VIAL) IV ONE (07:51)
[2022-12-07] MEDS ORDERED: GELATIN SPONGE,ABSORB (LARGE) 1 EACH SPONGE TOPICAL ONE (08:33)
[2022-12-07] MEDS ORDERED: THROMBIN (BOVINE) 5,000 UNIT VIAL TOPICAL ONE (08:33)
[2022-12-07] MEDS ORDERED: VANCOMYCIN 1,000 MG VIAL MISCELLANE ONE (10:22)
--- NOTE | 2022-12-07 10:46 | P.OP ---
Date of Procedure: 12/07/22 Preoperative Diagnosis: 1. L4-S1 SPONDYLOSIS, L5-S1 SEVERE SPONDYLOSIS 2. L5-S1 FORAMINAL STENOSIS 3. LOW BACK PAIN 4. LE PARESTHESIAS Postoperative Diagnosis: 1. L4-S1 SPONDYLOSIS, L5-S1 SEVERE SPONDYLOSIS 2. L5-S1 FORAMINAL STENOSIS 3. LOW BACK PAIN 4. LE PARESTHESIAS Procedure(s) Performed: 1. L5-S1 POSTERIOLATERAL AND INTERBODY FUSION (44309) 2. L5-S1 INSTRUMENTATION (53957) 3. L5-S1 LAMINOFORAMINOTOMY AND DECOMPRESSION (84214) 4. INSERTION OF BIOMECHANICAL DEVICE (72714) 5. USE OF mySBX NAVIGATION (55054) USE OF IONM Implants: -Dreamfund HoldingsEST MIS SCREW AND THIEN SYSTEM -GLOBUS SABLE CAGE 30X8MM 6-12MM -MAGNATOS, IFACTOR, ALLOCELL, ARTHROCELL, AUTOGRAFT Anesthesia: GETA Surgeon: John Kasper Shuttle Fixer #1: Juwan Mcclelland (Was present and assisted with all aspects of the case from position to closure ) Estimated Blood Loss (ml): 50 IV fluids (ml): 1,000 Urine output (ml): 0 Pathology: none sent Condition: stable Disposition: PACU Indications for Procedure: Ms. Lopez is presenting for evaluation of low back pain, LE weakness, LE radiculopathy with paresthesias. It was my pleasure to have seen and examined Ms. Lopez. In our visit today we have had a chance to go over subjective complaints, physical examination findings and treatments including the natural course history without intervention and various interventional options. The patients imaging demonstrates: XRay Lumbar Multiview (AP, Lateral, Flexion, Extension) with AP pelvis; 5 views taken at [facility] on 12/30/21 of Lumbar Spine: - Re-reviewed with the patient in office today. images reviewed with the patient and demonstrate what appears to be near autofusion of L5-S1 with severe collapse facet arthrosis and foraminal stenosis. there is grade 1 anterior listhesis of L4-L5 which segmentally increases kyphosis on flexion. Overall lumbar lordosis is maintained. No acute fracture dislocation. AP pelvis demonstrates congruent level pelvis no fracture. [facility] of Lumbar Spine: - Re-reviewed with the patient in office today. images are reviewed with the patient demonstrate L4 5 grade 1 spondylolisthesis which is partially reduced in the supine film. There is severe disc desiccation noted L5-S1 with severe spondylosis. Modic endplate changes and motor endplate erosions are noted L5-S1. There is severe facet arthrosis ligamentum hypertrophy and facet bogginess noted throughout L4 5 and L5-S1.There is a facet cyst on the right-hand side at L4-L5. No acute fractures are otherwise noted incidental L2 hemangioma noted. No other lesions. On physical exam, Ms. Lopez demonstrates: The patient continues to complain of aching low back pain radiating into the bilateral buttock and lower extremities, with the left leg pain more severe compared to the right. Patient does also complain of diffuse numbness and tingling persisting around the L4-S1 dermatomal distribution bilaterally. Overall the patient has seen a progressive increase in symptoms since their onset. Ms. Lopez's symptoms are exacerbated with prolonged standing, ambulation, and flexion/extension of the low back, due to this they note that it is increasingly difficult to complete many of their daily tasks. I have explained to the patient that as their condition progresses it will cause further neurological deficits and eventual paralysis. Based on the patients imaging, physical exam, and the rapid progression and disabling nature of their symptoms, at this time I recommend surgery in the form of a: L5-S1 minimally invasive transforaminal lumbar interbody fusion. I discussed the risk and benefits of this procedure at length with Ms. Lopez. The patient agreed to considered pursuing the procedure above mentioned . Prior to surgery, she should follow up with her PCP (Cardio, ID, IM etc) for clearance. Questions were invited and answered, and the patient wishes to proceed as outlined below. Currently, I am recommendin.L5-S1 minimally invasive transforaminal lumbar and posteriorlateral fusion. After review of films with pt again today, we have decided to just to L5-S1 as L4-5 is minimally mobile on F/E films and she is not having the same pain down her legs at this time as she did before. She is still having b/l radiating hip and some groin pain that is related to L5-S1 severe spondylosis and foraminal stenosis. We will plan on L5-S1 and if there is intraoperative findings that suggest we need to do L4-5 as well she is OK with this. Discussed with pt. She agrees to proceed. Description of Procedure: L5-S1 MIS TLIF DESIRAE The patient was seen and examined in the preoperative area. All preoperative protocols were followed. Informed consent was obtained risks and benefits of the procedure were discussed at length. Risks including bleeding infection damage to the surrounding tissue and risk of reoperation were discussed with the patient. Risk of anesthesia up to and including was a discussed with the patient. These are outlined in the risk review. They were willing to accept these risks and all the risks of surgery. The patient was given a weight-based dose of antibiotics in the form of 2 g Ancef. The patient was seen and evaluated by the anesthesia team who deemed them fit for surgery. The site was marked, the patient was willing to proceed with the procedure. The patient was transferred to the operative suite by the Department of anesthesia. They were then drifted off to sleep by the department anesthesia and GETA was performed. The patient tolerated this well. Salamanca catheter was placed by nursing staff, a-traumatically. Once confirmation of lines and ventilation the patient was transferred to a prone Jason table very carefully. All bony prominences including wrists, elbows, axilla, chest, hips, and thighs, and feet were padded very well. Special attention was paid to the genitalia, and these were padded accordingly. SCDs were placed on bilateral lower extremities and were connected. Arms were well padded and placed on arm boards up and out in the 90/90 position. Once in position, again we confirmed good ventilation capabilities and that lines were running appropriately. The patients Lumbar spine was then exposed. 1010s were placed outlining the incision site. Standard alcohol was used to clean the incision site and allowed to dry. C-arm was used to needle localize the pedicles at L5-S1 and bio-floridalma the patient and confirm level for incision which was marked with a skin marker. Operative briefing was performed with all teams and everyone in agreement to proceed. The patient was then prepped and draped in a normal sterile fashion. Timeout was then performed, and all parties agreed with the procedure to be performed. Skin nicks were made over the PSIS on the right side and pins placed for the [employer] Navigation tracker. This was secured and then a 3D Zhiem spin was registered. Once registered it was tested and confirmed to be accurate. We then targeted pedicles b/l at L5 and S1 using navigated Jamshidi and drill guide. Wires were then placed in their void and confirmed to be in good position on AP and Lateral. Contralateral right side screws were then placed over wires and tested and they all tested above 20 mA. Attention was then turned to interbody fusion at L5-S1. Tubular retractor system was placed at the interspace of L5-S1 using biplanar c arm. Once in position and dilated up to 26mm tube it was locked to the bed and confirmed in good position. Microscope was then brought in for visualization. Limited myomectomy was performed and laminectomy, complete facetectomy and foraminotomy performed at L5-S1 using high speed isaias and Kerrison rongure. The ligamentum was removed and dural sac decompressed. Exiting and traversing roots visualized and decompressed. Neural elements were then protected, and disc space accessed with an osteotome. Sequential shaving then done under lateral imaging and complete discectomy performed using xenia, pituitary and curette. Once good bleeding endplates accomplished and good height bahai with trials, a combination of autograft, allograft and synthetic placed anterior in the disc space. The cage was then selected and impacted into place under lateral imaging. The cage was then expanded restoring height, lordosis and alignment. The cage was backfilled with bone graft through a funnel. The special services director removed and area inspected. Good cage placement, stable cage and no injuries. Area was irrigated copiously, and meticulous hemostasis achieved. The tubular retractor was then removed under direct visualization. Screws were then selected and placed over the previously placed wires on the ipsilateral side. This was done in the fashion described above. Screws were then tested, and all tested above 20 mA. Shells were then placed on the tabs. Thien length was then measured, and rods selected. They were then placed through the MIS tabs, subfascial. These were then locked into place with set screws and final tightened. Thien holders removed and images taken showing good placement of rods good lordosis and bahai of height. Tabs were broken off. Wounds were then copiously irrigated with NSS. Frankenmuth used for TP decortication and mixture of MagnatOs, allograft and autograft packed posterolateral. Facia was then closed with 0 Vircyl. Deep subq closed with 0 Vicryl. Superficial subq closed with 2-0 Vicryl and skin with francisco. Wound edges approximated very well. Wound was then cleaned with alcohol and dried. Wounds dressed in Optifoam dressings. The patient was then transferred off the table back to their hospital bed a- traumatically. They were extubated by the department of anesthesia. They were then transferred to PACU in stable condition having tolerated the procedure with no complications.
--- NOTE | 2022-12-07 10:48 | P.PN ---
Progress Note - Text Progress Note Date: 12/07/22 Postop: . Patient seen and examined they are doing well. Their pain is under control at this time. They are moving all 4 extremities without any issues. Vital signs are stable.. They are currently recovering and will be transferred to the floor once deemed stable by the PACU team and anesthesiologist. No Other issues at this time they deny fever chills shortness of breath or chest pain. [Medical management pending] [Continue with intravenous fluids, pain medication, muscle relaxers, home medication] [Soft diet to start to advance as tolerated] We will evaluate the patient in the morning.
[2022-12-07] MEDS: HYDROmorphone 0.5 MG/0.5 ML SYRINGE IVP PRN ×5 (11:08→21:44)
[2022-12-07] MEDS ORDERED: SENNOSIDES-DOCUSATE SODIUM 1 EACH TAB PO PRN (11:31)
[2022-12-07] MEDS ORDERED: ONDANSETRON 4 MG/2 ML VIAL IVP PRN (11:31)
[2022-12-07] MEDS ORDERED: MAGNESIUM HYDROXIDE 2,400 MG/30 ML CUP PO PRN (11:31)
[2022-12-07] MEDS ORDERED: HYDROcodone/APAP 5-325MG 1 EACH TAB PO PRN (11:31)
[2022-12-07] MEDS ORDERED: HYDROcodone/APAP 7.5-325MG 1 EACH TAB PO PRN (11:33)
--- NOTE | 2022-12-07 12:56 | XR ---
EXAMINATION TYPE: XR lumbar spine 2 or 3V, FL guidance operating room DATE OF EXAM: 12/07/2022 Comparison: None Clinical History: 52-year-old female LUMBAR FUSION Findings: Intraoperative fluoroscopy during L5-S1 lumbar fusion. Total fluoroscopy time of 37 seconds. Total im ages: None provided. Total DAP: 8344.62 mGycm2. Impression: Intraoperative fluoroscopy as above.
[2022-12-07] MEDS: HYDROmorphone 1 MG/ML 1 ML SYRINGE IVP PRN ×2 (13:23→17:41)
[2022-12-07] MEDS: ACETAMINOPHEN TAB 325 MG TAB PO SCH ×2 (13:27→17:40)
--- NOTE | 2022-12-07 14:20 | CT ---
EXAMINATION TYPE: CT lumbar spine wo con CT DLP: 2214.6 mGycm, Automated exposure control for dose reduction was used. DATE OF EXAM: 12/07/2022 1:52 PM COMPARISON: Lumbar spine fluoroscopic images 12/07/2022. CLINICAL INDICATION:Female, 52 years old with history of s/p L5-S1 TLIF; PHH, S/p L5-S1 TLIF. TECHNIQUE: Multiple axial images were obtained from the midportion of T11 through the sacroiliac todd nts. Soft tissue and bone windows in coronal and sagittal planes were obtained and reviewed. FINDINGS: No acute fracture or dislocation. Postsurgical changes from bilateral pedicular screws and rods and d isc spacers involving L5-S1. Hardware appears intact with appropriate alignment. There is associated soft tissue edema with subcutaneous gas at the surgical site. Skin francisco identified along the back. Disc space narrowing with endplate sclerosis and anterior osteophytosis identified at T11-T12. Degen erative changes of both SI joints. No organized fluid collection. Broad-based disc bulge with mild effacement of the intrathecal sac at L3-L4. Mild bilateral neural fo raminal stenosis at this level. Mild bilateral neural foraminal stenosis at L4-L5. Broad-based disc b ulge at L2-L3 with mild effacement of the anterior thecal sac. Mild bilateral neural foraminal stenos is at L2-L3. No significant stenosis involving the remaining vertebral body levels or foraminal level s. Fat containing 1.6 cm lesion within the superior pole the right kidney most consistent with an angiom yolipoma. IMPRESSION: 1. No evidence of fracture of the lumbar spine. 2. Postsurgical changes from L5-S1 fusion with disc fusion cages. Hardware appears intact with the pr eliminary alignment. 3. Mild multilevel degenerative disc disease as described above. 4. 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
[2022-12-07] MEDS: HYDROcodone/APAP 10-325MG 1 EACH TAB PO PRN (14:36)
[2022-12-07] MEDS ORDERED: ALBUTEROL NEBULIZED 2.5 MG/3 ML INHALATION PRN (14:52)
[2022-12-07] MEDS ORDERED: DEXTROSE 50% SYRINGE 50 ML IVP PRN ×2 (14:53)
--- NOTE | 2022-12-07 14:55 | P.CONS ---
History of Present Illness - Reason for Consult Consult date: 12/07/22 DM 2 Requesting physician: John Kasper - Chief Complaint back pain - History of Present Illness Patient is a 52-year-old female with diabetes mellitus type 2 treated with orals and trulicity, HTN, HLD, and arthritis who presented for L5-S1 posteriolateral interbody fusion and L5-S1 Laminoforaminotomy and decompression. She tolerated the procedure well without any immediate postoperative complications. Patient seen and examined at bedside. She complains of some neck pain. She denies any lightheadedness, dizziness, nausea, vomiting. She denies any recent cough, cold, fever, flu. At home she has been taking her medications as prescribed. She last took her trulicity on Tuesday of last week. Vital signs reviewed General: nontoxic, no distress, appears at stated age, Obese Derm: warm, dry Eyes: EOMI, no lid lag, anicteric sclera, pupils equal round reactive to light ENT: Nose and ears atraumatic, no thrush, no pharyngeal erythema Cardiovascular: S1S2 reg, no murmur, positive posterior tibial pulse bilateral, no edema Lungs: clear to auscultation bilateral, no rhonchi, no rales, no wheeze, no accessory muscle use Abdominal: soft, nontender to palpation, no guarding, no appreciable organomegaly, normal bowel sounds Ext: no gross muscle atrophy, no contractures Neuro: CN II-XII grossly intact, Moving alll 4 extremities independently Psych: Alert, oriented, appropriate affect Assessment/Plan: 52 yo Female s/p 5-S1 posteriolateral interbody fusion and L5-S1 Laminoforaminotomy and decompression. DM 2 - hold metformin and amaryl this evening, likely restart in AM - Trulicity due tomorrow - A1C 6.6 - SSI, follow BS HTN -Resume metoprolol 50 mg daily, lisinopril 5 mg daily -Follow blood pressures HLD -Resume Lipitor 20 mg at night Imaging: Lumbar spine CT- post-surgical changes as anticipated, right renal 1.6 cm benign angiomyolipoma Data Review: Vitals reviewed pulse 77, respirations 16, blood pressure 118/77, O2 sat 90% on room air Pre-op glucose 14 Preoperative labs reviewed. Hgb is 14.4, Cr 0.8, A1C 6.6 Thank you for allowing us to participate in the care of this pleasant patient. Do not hesitate to contact us with questions. Someone can be reached from the [facility] hospitalist group all hours of the day at [phone] or via [employer]. This dictation was prepared using [employer] voice recognition software. Though every attempt is made to correct errors during dictation some may still exist. Past Medical History Past Medical History: Diabetes Mellitus, Hyperlipidemia, Hypertension, Osteoarthritis (OA), Supraventricular Tachycardia (SVT) Additional Past Medical History / Comment(s): Restless Leg Syndrome, chronic back pain, seasonal allergies., hx bells palsy with slight drooping at her eye., anemia., svt & cardiomyopathy (per cardiology hx). History of Any Multi-Drug Resistant Organisms: MRSA Year Discovered:: 2010 MDRO Source:: rt arm Past Surgical History: Section, Cholecystectomy, Heart Catheterization, Orthopedic Surgery, Tubal Ligation Additional Past Surgical History / Comment(s): Section X3, PAIN CLINIC PROCEDURES, right endoscopic carpal tunnel release, right small finger trigger release. Past Anesthesia/Blood Transfusion Reactions: No Reported Reaction, Postoperative Nausea & Vomiting (PONV) Additional Past Anesthesia/Blood Transfusion Reaction / Comm: Severe Cl austrophobia. Past Psychological History: ADD/ADHD, Anxiety Additional Psychological History / Comment(s): Claustrophobia. Smoking Status: Current every day smoker Past Alcohol Use History: None Reported Additional Past Alcohol Use History / Comment(s): Smokes < 1ppd., Started smoking at age 16. Past Drug Use History: Marijuana Additional Drug Use History / Comment(s): Marijuana daily - Past Family History Sister(s) Family Medical History: Cancer Father Family Medical History: Cancer Mother Family Medical History: Cancer Additional Family Medical History / Comment(s): . Medications and Allergies Home Medications Medication Instructions Recorded Confirmed Type metFORMIN HCL [Glucophage] 1,000 mg PO BID 01/21/19 12/07/22 History Dextroamphetamine/Amphetamine 30 mg PO BID 11/05/19 12/07/22 History [Adderall] rOPINIRole HCL [Requip] 1 mg PO BID 11/05/19 12/07/22 History Atorvastatin [Lipitor] 20 mg PO HS 02/19/20 12/07/22 History Glimepiride [Amaryl] 1 mg PO AC-BRKFST 02/19/20 12/07/22 History HYDROcodone/APAP 5-325MG [P[place] 1 tab PO BID PRN 04/03/21 12/07/22 History 5-325] lisinopriL [Zestril] 5 mg PO QAM 04/03/21 12/07/22 History Ibuprofen 800 mg PO Q8H PRN 09/29/21 12/07/22 History Loratadine [Claritin] 10 mg PO DAILY 09/29/21 12/07/22 History Dulaglutide [Trulicity] 3 mg SQ Q7D 06/15/22 12/07/22 History Albuterol Sulfate [Proair 1 puff INHALATION Q6H PRN 11/11/22 12/07/22 History Respiclick] Gabapentin 300 mg PO TID 11/11/22 12/07/22 History Metoprolol Succinate [Toprol XL] 50 mg PO DAILY 12/01/22 12/07/22 History Allergies Allergy/AdvReac Type Severity Reaction Status Date / Time adhesive tape Allergy red itchy Verified 12/07/22 06:30 skin, rash Physical Exam Osteopathic Statement: *. No significant issues noted on an osteopathic structural exam other than those noted in the History and Physical/Consult. Vitals: Vital Signs Temp Pulse Pulse Resp BP Pulse Ox 12/07/22 13:35 77 118/77 90 L 12/07/22 12:19 74 16 114/59 96 12/07/22 12:04 76 16 119/55 98 12/07/22 11:48 76 16 111/56 98 12/07/22 11:33 81 16 120/57 98 12/07/22 11:16 72 16 121/64 100 12/07/22 11:02 68 16 120/64 100 12/07/22 10:46 96.8 F L 76 16 109/57 100 12/07/22 06:55 97.0 F L 87 18 124/74 98 Intake and Output 12/06/22 12/07/22 12/07/22 22:59 06:59 14:59 Intake Total 200 1650 Output Total 150 Balance 200 1500 Intake: IV 200 1650 Output: Urine 100 Estimated Blood Loss 50 Other: Weight 111.3 kg 111.3 kg
[2022-12-07] MEDS: GABAPENTIN 300 MG CAP PO SCH ×2 (15:27→21:41)
[2022-12-07 16:21] LABS: Glucose,Whole Blood 138 mg/dL (70-110)
[2022-12-07] MEDS: INSULIN ASPART (NovoLOG) 100 UNIT/ML VIAL SQ SCH (16:25)
[2022-12-07] MEDS: CYCLOBENZAPRINE 5 MG TAB PO SCH (20:19)
[2022-12-07] MEDS ORDERED: ATORVASTATIN 20 MG TAB PO SCH (21:00)
[2022-12-07 21:22] LABS: Glucose,Whole Blood 163 mg/dL (70-110)
[2022-12-08] MEDS: ACETAMINOPHEN TAB 325 MG TAB PO SCH ×3 (00:12→12:11)
[2022-12-08 03:08] LABS: Glucose,Whole Blood 138 mg/dL (70-110)
[2022-12-08 06:16] LABS: Glucose,Whole Blood 130 mg/dL (70-110)
[2022-12-08] MEDS: HYDROcodone/APAP 10-325MG 1 EACH TAB PO PRN (06:16)
[2022-12-08] MEDS: LACTATED RINGERS 1,000 ML IV SCH (06:42)
[2022-12-08 07:28] VITALS: BP 122/74; PULSE 88; RESP 16; TEMP 98.5
[2022-12-08] MEDS: INSULIN ASPART (NovoLOG) 100 UNIT/ML VIAL SQ SCH ×2 (07:28→12:13)
[2022-12-08] MEDS: HYDROmorphone 0.5 MG/0.5 ML SYRINGE IVP PRN (07:37)
[2022-12-08 07:40] LABS: HCT 42.6 % (34.0-46.0); HGB 13.5 gm/dL (11.4-16.0); MCH 28.6 pg (25.0-35.0); MCHC 31.6 g/dL (31.0-37.0); MCV 90.5 fL (80.0-100.0); Mean Platelet Volume 7.5; Platelet Count 274 k/uL (150-450); RBC 4.71 m/uL (3.80-5.40); RDW 14.1 % (11.5-15.5); WBC 12.2 k/uL (3.8-10.6)
[2022-12-08 07:50] LABS: Potassium 4.2 mmol/L (3.5-5.1)
[2022-12-08 07:51] LABS: African American GFR (CKD) >90 (>60 ml/min/1.73 sqM); Anion Gap 8 mmol/L; Blood Urea Nitrogen 15 mg/dL (7-17); Calcium 8.9 mg/dL (8.4-10.2); Carbon Dioxide 28 mmol/L (22-30); Chloride 102 mmol/L (98-107); Glucose 144 mg/dL (74-99); Non-African American GFR(CKD) >90 (>60 ml/min/1.73 sqM); Sodium 138 mmol/L (137-145)
[2022-12-08] MEDS ORDERED: lisinopriL 5 MG TAB PO SCH (09:00)
[2022-12-08] MEDS ORDERED: LORATADINE 10 MG TAB PO SCH (09:00)
[2022-12-08] MEDS ORDERED: METOPROLOL SUCCINATE (ER) 50 MG TAB.ER.24H PO SCH (09:00)
[2022-12-08] MEDS ORDERED: HYDROcodone/APAP 10-325MG 1 EACH TAB PO PRN (09:12)
--- NOTE | 2022-12-08 09:18 | P.PN ---
Subjective Progress Note Date: 12/08/22 Principal diagnosis: 1. L4-S1 spondylosis and stenosis 2. Grade I spondylolisthesis of L4 on L5 and L5 on S1 3. Lower extremity radiculopathy, bilateral 4. Low back pain Patient seen and examined this morning. Upon entering room patient was ambulating back from restroom. She states she has increased pain in her low back with activity. Medications have been adjusted. Surgical dressings to the lumbar spine are clean dry and intact, no shadowing present. We will reassess pain level this afternoon, patient would like to be discharged home later today. Patient denies any fevers/chills, nausea/vomiting, or chest pain. Objective - Vital Signs Vital signs: Vital Signs Temp 98.5 F 12/08/22 06:44 Pulse 88 12/08/22 06:44 Resp 16 12/08/22 06:44 BP 122/74 12/08/22 06:44 Pulse Ox 94 L 12/08/22 06:44 FiO2 Intake & Output 12/07/22 12/08/22 12/08/22 18:59 06:59 18:59 Intake Total 1650 Output Total 150 Balance 1500 Weight 111.3 kg Intake: IV 1650 Output: Urine 100 Estimated Blood Loss 50 Other: Voiding Method Toilet # Voids 4 - Exam Physical Examination General: The patient is awake and alert, in no acute distress Skin: Skin is warm and dry with no obvious rashes or lesions. Surgical incisions to the lumbar spine, dressings are clean dry and intact. Eye: Pupils are equal, round and reactive to light, extra-ocular movements are intact; there is normal conjunctiva bilaterally. Neck: The neck is supple, there is no tenderness and ROM intact. Cardiovascular: There is a regular rate and rhythm. No murmur, rub or gallop is appreciated. Respiratory: Lungs are clear to auscultation, respirations are non-labored, breath sounds are equal. Gastrointestinal: Soft, non-distended, non-tender abdomen. Back: There is no tenderness to palpation in the midline, paralumbar, parathoracic or buttocks region. There is no obvious deformity . Musculoskeletal: ROM limited secondary to pain and stiffness from surgical procedure. Muscle strength in all major muscle groups of bilateral upper extremities 5/5, bilateral lower extremities 4/5. Neurological: CN 2-12 intact. There are no obvious motor or sensory deficits. Movement and coordination equal and intact. Sensory exam to light touch intact C5-T1 and intact from L2-S1. Reflexes 2/4 in bilateral upper and lower extremities. Negative Hoffmans, babinski, and clonus signs. Psychiatric: Cooperative, appropriate mood & affect, normal judgment. - Labs CBC & Chem 7: 12/08/22 06:31 12/08/22 06:31 Labs: Abnormal Lab Results - Last 24 Hours (Table) 12/07/22 12/07/22 12/08/22 Range/Units 16:20 21:21 03:07 WBC (3.8-10.6) k/uL Glucose (74-99) mg/dL POC Glucose (mg/dL) 138 H 163 H 138 H (70-110) mg/dL 12/08/22 12/08/22 12/08/22 Range/Units 06:14 06:31 06:31 WBC 12.2 H (3.8-10.6) k/uL Glucose 144 H (74-99) mg/dL POC Glucose (mg/dL) 130 H (70-110) mg/dL Assessment and Plan Assessment: Postoperative day 1: Minimally invasive PLIF L5-S1 1. L4-S1 spondylosis and stenosis 2. Grade I spondylolisthesis of L4 on L5 and L5 on S1 3. Lower extremity radiculopathy, bilateral 4. Low back pain Plan: -Appreciate recruitment consultant and team management. -Activity: Ambulate QID, OOB all meals, up and about, limit lifting bending twisting to less than 5 lbs. Use walker or cane if needed for stability. -Daily PT/OT, increase ambulation strength and balance. -Pain control: Adequate at this time -Meds: reviewed -GI ppx: senna, Miralax -DVT PPX: OK to restart Heparin tonight -Hygiene: Shower today. Maintain dressing clean and dry. Meticulous cleaning after BMs away from the incision site -Encourage IS 10x/hr -Dispo: Anticipate discharge home later today vs tomorrow with homecare *I reviewed and discussed this case with my attending Dr. Kasper, whom has reviewed this chart and films and is in agreement with assessment and plan of care as outlined above. I have personally seen and examined the patient, performed the documentation and the assessment and plan as written. Number of minutes spent on the visit: 20m.
[2022-12-08] MEDS: CYCLOBENZAPRINE 5 MG TAB PO SCH (09:20)
[2022-12-08] MEDS: GABAPENTIN 300 MG CAP PO SCH (09:24)
[2022-12-08 11:16] LABS: Glucose,Whole Blood 156 mg/dL (70-110)
--- NOTE | 2022-12-08 13:41 | P.DS ---
Providers Date of admission: 12/07/22 10:38 Expected date of discharge: 12/08/22 Attending physician: John Kasper DO Consults: 12/07/22 11:32 Consult Physician Routine Consulting Provider: Camille Mills Consult Reason/Comments: medical management Do you want consulting provider notified?: Yes Primary care physician: [facility] Course: Hospital Course: The patient was evaluated preoperatively and found to have the diagnosis of lumbar stenosis. They underwent appropriate preoperative care and were willing t o undergo the intended procedure. They underwent a successful minimally invasive TLIF L5-S1, were recovered appropriately and sent to the floor. While on the floor they worked with physical therapy, occupational therapy and nursing to enhance their recovery experience. Their pain was well controlled through their stay and they were started on appropriate medications, DVT ppx modalities, activity and dietary needs. Daily labs were monitored closely, and transfusions were only used when necessary. Medicine as well as other consulting services have made their input and have helped with our team approach and multidisciplinary care. PT milestones have been met and passed and they have made the recommendation of home for this patient and treating providers agree with this care path. The patient will be discharged home with appropriate medications, instructions and follow-up information and in stable condition. Patient Condition at Discharge: Good Plan - Discharge Summary Discharge Rx Participant: No New Discharge Prescriptions: New Gabapentin 300 mg PO TID #90 cap Sennosides/Docusate Sodium [Senna Plus 8.6-50 mg Softgel] 1 each PO DAILY PRN #20 capsule PRN Reason: Constipation cefaDROXiL [Duricef] 500 mg PO Q12HR #10 cap Cyclobenzaprine [Flexeril] 5 mg PO TID #90 tablet HYDROcodone/APAP 10-325MG [[place] 10-325] 1 tab PO Q4-6H PRN #42 tab PRN Reason: Pain Continue metFORMIN HCL [Glucophage] 1,000 mg PO BID rOPINIRole HCL [Requip] 1 mg PO BID Dextroamphetamine/Amphetamine [Adderall] 30 mg PO BID Glimepiride [Amaryl] 1 mg PO AC-BRKFST Atorvastatin [Lipitor] 20 mg PO HS lisinopriL [Zestril] 5 mg PO QAM Loratadine [Claritin] 10 mg PO DAILY Albuterol Sulfate [Proair Respiclick] 1 puff INHALATION Q6H PRN PRN Reason: Dyspnea Metoprolol Succinate [Toprol XL] 50 mg PO DAILY Dulaglutide [Trulicity] 3 mg SQ Q7D No Action HYDROcodone/APAP 5-325MG [[place] 5-325] 1 tab PO BID PRN PRN Reason: Pain Ibuprofen 800 mg PO Q8H PRN PRN Reason: Pain Gabapentin 300 mg PO TID Discharge Medication List metFORMIN HCL [Glucophage] 1,000 mg PO BID 01/21/19 [History] Dextroamphetamine/Amphetamine [Adderall] 30 mg PO BID 11/05/19 [History] rOPINIRole HCL [Requip] 1 mg PO BID 11/05/19 [History] Atorvastatin [Lipitor] 20 mg PO HS 02/19/20 [History] Glimepiride [Amaryl] 1 mg PO AC-BRKFST 02/19/20 [History] HYDROcodone/APAP 5-325MG [[place] 5-325] 1 tab PO BID PRN 04/03/21 [History] lisinopriL [Zestril] 5 mg PO QAM 04/03/21 [History] Ibuprofen 800 mg PO Q8H PRN 09/29/21 [History] Loratadine [Claritin] 10 mg PO DAILY 09/29/21 [History] Dulaglutide [Trulicity] 3 mg SQ Q7D 06/15/22 [History] Albuterol Sulfate [Proair Respiclick] 1 puff INHALATION Q6H PRN 11/11/22 [History] Gabapentin 300 mg PO TID 11/11/22 [History] Metoprolol Succinate [Toprol XL] 50 mg PO DAILY 12/01/22 [History] Cyclobenzaprine [Flexeril] 5 mg PO TID #90 tablet 12/08/22 [Rx] Gabapentin 300 mg PO TID #90 cap 12/08/22 [Rx] HYDROcodone/APAP 10-325MG [[place] 10-325] 1 tab PO Q4-6H PRN #42 tab 12/08/22 [Rx] Sennosides/Docusate Sodium [Senna Plus 8.6-50 mg Softgel] 1 each PO DAILY PRN #20 capsule 12/08/22 [Rx] cefaDROXiL [Duricef] 500 mg PO Q12HR #10 cap 12/08/22 [Rx] Follow up Appointment(s)/Referral(s): John Kasper DO [Doctor of Osteopathic Medicine] - 12/22/22 11:30 am Suzy Preciado MD [Primary Care Provider] - 1 Week Activity/Diet/Wound Care/Special Instructions: Spine Discharge and Recovery Instructions Date of Surgery: 12/07/2022 Diagnosis: Lumbar stenosis Procedure: Minimally invasive TLIF L5-S1 Medications: See medication list All medication refills should be obtained through your primary care doctor or your clinic spine surgeon. Please discuss prescription refills at your follow up appointment. Do not call the hospital for medication refills. Dressing: Leave your dressing in place for a total of 5 days post operatively. Then you may remove your dressing and leave open to air. Keep the area clean and if not able to keep area clean, then cover with sterile gauze and tape. Showering: You may shower 3 days after your procedure allowing soap and water to run over incision. Do not scrub. Do not soak. Blot dry. Follow up: Please confirm a follow up appointment with your surgeon 3 weeks post operatively. Please make an appointment to follow up with your PCP in 1-2 weeks after surgery for evaluation 3 phase, 3-week plan POST OP WEEKS 1-3 1. Lifting/carrying/pushing/pulling limited to less than 5 pounds. 2. Do not sit for longer than 15 minutes at one time. Get up and walk around. Prolonged sitting is NOT advised. If you lay down, see if you can tolerate laying down on you front (belly side) 3. Walk for periods of 15 minutes = 1 mile but no longer; do it multiple times times each day. 4. Ice your low back after activity. POST OP WEEKS 3-6 1. Lifting limited to less than 20 pounds. 2. Do not sit for longer than 30 minutes at a time. Frequently change positions. Use a sit-to stand workstation or take frequent breaks from sitting if you have returned to work. 3. Walk for 30 minutes each day. If possible, do these three or more times a day POST OP WEEKS 6+ At your 6-week appointment we will give you a physical therapy referral to focus on a core stabilization and strengthening program. You should also work on leg & buttock strengthening, hamstring & quadriceps stretching, and continue a low impact aerobic activity program such as swimming, walking, or riding a stationary bicycle. During the initial 6 weeks after your surgery, you are at the highest risk of re-injuring your spine. You should generally avoid BLTs (bending, lifting and twisting combination motions) and follow the above guidelines to reduce the chance of reinjury. You can anticipate post op appointments in our office at approximately 3 weeks and 6 weeks after your surgery. INCISION CARE: If your incision is not draining you do NOT need to cover it with a dressing. Keep your incision clean, dry and intact. In most cases, we apply skin glue, francisco or sutures to the incision at the time of surgery. This will be like a crust or have the appearance of a scab and will fall off in time on its own. The stitches or francisco need to be removed at 3 weeks post op appointment. You may begin to shower 3 days after surgery (this allows the glue to del cid well). However, please avoid scrubbing the incision site or peeling off any of the skin glue. This will ensure optimal healing of your incision. Also, during this time avoid soaking the incision area in water - this includes swimming pools, hot tubs or baths. No ointments, lotions or oils on the incision until your surgeon allows. Leave francisco, sutures or glue in place. Neurological dysfunction that comes on suddenly can also be a sign of a stroke. Below some common symptoms of a stroke are listed: B - balance difficulty such as sudden onset walking or leaning to one side - NEW E - eye problem such as sudden double vision or trouble seeing on one side - NEW F - Facial weakness or numbness on one side - NEW A - Arm or leg weakness or numbness on one side - NEW S - Slurred speech or difficulty with word finding - NEW T - Time is BRAIN! Call 911 as soon as you recognize these symptoms Diet: Consume a regular diet rich in vegetables and lean protein such as chicken or fish. You should consume in a ratio of approximately 20% fats|40% carbohydrates|40%protein. Vegetables, sweet potatoes, brown rice or quinoa are examples of good carbohydrates. Chips, white bread, cookies and sweets/sugar are examples of bad carbohydrates. Limit your bad carbs, go wild with good carbs. "Life's Simple 7" Guidelines as per [place] [employer] These will help you reclaim your life after surgery and bolter helper in your recovery, keeping in mind your restrictions. (1) Get Active. Physical activity can help people lose weight, control high blood pressure and cholesterol, feel emotionally better, and sleep better. (2) Control Cholesterol. Avoid a diet high in saturated fat, trans fat, & cholesterol. Limit whole milk & cream, ice cream, butter, egg yolks, processed meats (like sausage and hot dogs), and fatty meats. Choose healthy foods that are low in saturated fat, trans fat and cholesterol which include: Fruits and vegetables, fiber rich grain products (like whole grain pasta and brown rice), lean meat such as chicken, fish, nuts, seeds, and legumes. (3) Eat Better. Eat small portions. Shop at the grocery with a list and do not stray from it. Tips for a healthy diet include: Limit sodium intake to less than 1500mg daily, avoid prepackaged, processed, and fast foods, choose a diet rich in fruits, vegetables, and whole grain, high fiber foods, and limit saturated & cholesterol in your diet. (4) Manage Blood Pressure. If you have high blood pressure, you should have a cuff at home so that you can check your blood pressure regularly. Be sure you have a good cuff. An arm one is generally better than a wrist one. Bring the cuff to a doctor's appointment to validate that the measurements that your cuff are taking are accurate. Take your blood pressure twice daily when you are sitting down and relaxing. Record the numbers in a log and bring this log with you to your doctors' appointments. (5) Lose Weight if your BMI is above 25. A healthy BMI is between 19-25. To calculate Your BMI, you may use a Standard BMI Calculator on the NIH BMI website: <www.nhlbi.nih.gov/guidelines/obesity/BMI/bmicalc.htm>. Weigh oneself daily. If you are overweight, set a goal to lose weight. A pound a week loss if needed is a good target. (6) Reduce Blood Sugar. Limit foods and liquids with "added sugars." (Added sugars include sucrose, fructose, glucose, maltose, dextrose, high fructose corn syrup, corn syrup, concentrated fruit juice and honey). (7) Stop Smoking. If you smoke, quitting smoking is one of the best things that you can do for your health. Smoking increases your risk of heart attack, stroke, and peripheral vascular disease, which is a build-up of plaque in your arteries. Please discard all the cigarettes and lighters in your house. Have a plan for what you will do when you have the urge to smoke. Direct and second- hand smoke shortens your life as well as the lives of your family, friends and others around you. For your health and the health of those around you, please consider quitting! Proper Bending Body Mechanics: Maintain a wide stance with one foot slightly in front of the other. Keep your back straight. Bend utilizing the strength in your hips and knees. Do not bend at the waist. Maintain the lifted object at your waist-level close to your body. Avoid lifting weight that causes immediately pain or pain anywhere in the body afterwards. Smoking/Nicotine If there was ever one thing that you could do to increase your overall health, decrease your risk of cardiovascular problems by about 39% the second you make the choice, it is to STOP SMOKING. Your body's most instant gratification is the second you stop smoking. We have all heard the studies, read the articles but it is true, smoking is extremely bad for your overall health, and moreover it is detrimental to your bone health. Nicotine, IN ANY FORM, kills bone cells, prevents your body from healing fractures, and significantly prolongs healing after surgery. In spine surgery specifically, it increases your risk of not healing your bones to create a fusion and increases your risk of having a revision surgery due to this up to 60%. I know it is hard. I know it feels impossible. But there are ways. Take control of your life. We are here to help you through it. And when you are ready, ask us and we can direct you to help if you desire. Use the START Plan to Quit Smoking (please visit the Helpguide.org website listed below for more information): S = Set a quit date. Choose a date within the next 2 weeks, so you have enough time to prepare without losing your motivation to quit. If you mainly smoke at work, quit on the weekend, so you have a few days to adjust to the change. T = Tell family, friends, and co-workers that you plan to quit. Let your friends and family in on your plan to quit smoking and tell them you need their support and encouragement to stop. Look for a quit mandy who wants to stop smoking as well. You can help each other get through the rough times. A = Anticipate and plan for the challenges you'll face while quitting. Most people who begin smoking again do so within the first 3 months. You can help yourself make it through by preparing ahead for common challenges, such as nicotine withdrawal and cigarette cravings. R = Remove cigarettes and other tobacco products from your home, car, and work. Throw away all your cigarettes (no emergency pack!), lighters, ashtrays, and matches. Wash your clothes and freshen up anything that smells like smoke. Shampoo your car, clean your drapes and carpet, and steam your furniture. T = Talk to your doctor about getting help to quit. Your doctor can prescribe medication to help with withdrawal and suggest other alternatives. If you can't see a doctor, you can get many products over the counter at your local pharmacy or grocery store, including the nicotine patch, nicotine lozenges, and nicotine gum. Resources for Quitting Smoking: <https://www.[place].gov/documents/[facility]/Quit_Tobacco_Resources_for_patient s_313480_7.pdf> Supplementation: Take recommended dosages of Vitamin D and Calcium to help fortify your bones and help them to heal. See your health maintenance packet for dosages and recommended levels. DVT/VTE prophylaxis: You will be given compression stockings from the hospital. Wear these daily for the first two weeks after surgery. You may take them off at night. You may be prescribed a medication to help thin your blood. Take this as directed. If you are not prescribed this medication, early and frequent ambulation has been shown to be the best prophylaxis to deep vein thrombosis and sequelae related to this event. Special Instructions: Follow blood sugar close after surgery your pre-op A1C was 6.6, keep up the good work! Discharge Disposition: HOME SELF-CARE
[2022-12-08] MEDS ORDERED: CYCLOBENZAPRINE 5 MG TAB PO SCH (16:00)
--- NOTE | 2022-12-08 16:12 | P.PN ---
Subjective Progress Note Date: 12/08/22 Patient is a 52-year-old female with diabetes mellitus type 2 treated with orals and trulicity, HTN, HLD, and arthritis who presented for L5-S1 posteriolateral interbody fusion and L5-S1 Laminoforaminotomy and decompression. She tolerated the procedure well without any immediate postoperative complications. Patient seen and examined at bedside. She is doing well. No complaints curr ently. Her back does hurt when she gets up and moving but she feels it is manageable that she will do well at home. She was able to walk well with physical therapy. Vital signs reviewed General: nontoxic, no distress, appears at stated age Cardiovascular: S1S2 reg, no murmur, positive posterior tibial pulse bilateral, Lungs: CTA bilateral, no rhonchi, no rales , no accessory muscle use Abdominal: soft, nontender to palpation, no guarding, no appreciable organomegaly Ext: no gross muscle atrophy, no edema b/l lower extremities, no contractures Neuro: CN II-XI grossly intact, no focal neuro deficits Psych: Alert, oriented, appropriate affect Assessment/Plan: 52 yo Female s/p 5-S1 posteriolateral interbody fusion and L5-S1 Laminoforaminotomy and decompression. DM 2 -Patient can resume metformin, Amaryl, and give herself dose of Trulicity that is due today - A1C 6.7 HTN -Metoprolol 50 mg daily, lisinopril 5 mg daily -Follow blood pressures HLD - continue lipitor 20 mg at night. Data Review: Vitals reviewed and patient afebrile. Blood pressure within normal limits. Labs reviewed and remarkable for white blood cell count 12.2, hemoglobin A1c was 6.7. Blood sugars reviewed and range from 130 to 163. Medically optimized for discharge at the discretion of orthopedic spine surgery. Home medication reconciliation is addressed. Thank you for allowing us to participate in the care of this pleasant patient. Do not hesitate to contact us with questions. Someone can be reached from the [facility] hospitalist group all hours of the day at [phone] or via perfect serve. This dictation was prepared using [employer] voice recognition software. Though every attempt is made to correct errors during dictation some may still exist. Objective - Vital Signs Vital signs: Vital Signs Temp 98.5 F 12/08/22 06:44 Pulse 88 12/08/22 10:42 Resp 16 12/08/22 06:44 BP 122/74 12/08/22 06:44 Pulse Ox 94 L 12/08/22 06:44 FiO2 Intake & Output 12/07/22 12/08/22 12/08/22 18:59 06:59 18:59 Intake Total 1650 Output Total 150 Balance 1500 Weight 111.3 kg Intake: IV 1650 Output: Urine 100 Estimated Blood Loss 50 Other: Voiding Method Toilet # Voids 4 2 - Labs CBC & Chem 7: 12/08/22 06:31 12/08/22 06:31 Labs: Abnormal Lab Results - Last 24 Hours (Table) 12/07/22 12/07/22 12/08/22 Range/Units 16:20 21:21 03:07 WBC (3.8-10.6) k/uL Glucose (74-99) mg/dL POC Glucose (mg/dL) 138 H 163 H 138 H (70-110) mg/dL Hemoglobin A1c (<=6.0) % 12/08/22 12/08/22 12/08/22 Range/Units 06:14 06:31 06:31 WBC 12.2 H (3.8-10.6) k/uL Glucose (74-99) mg/dL POC Glucose (mg/dL) 130 H (70-110) mg/dL Hemoglobin A1c 6.7 H (<=6.0) % 12/08/22 12/08/22 Range/Units 06:31 11:15 WBC (3.8-10.6) k/uL Glucose 144 H (74-99) mg/dL POC Glucose (mg/dL) 156 H (70-110) mg/dL Hemoglobin A1c (<=6.0) %
== END 2022-12-08 15:52 | disposition home or self-care (01) ==
LOC: OR 05:41 → 4SSUR 10:38 → OR 10:38 → 4SSUR 10:46
PROVIDERS: ADMIT Orthopaedic Surgery; ATTEND Orthopaedic Surgery
DX: M47.27 Other spondylosis with radiculopathy, lumbosacral region (principal); M48.07 Spinal stenosis, lumbosacral region; M43.17 Spondylolisthesis, lumbosacral region; M40.299 Other kyphosis, site unspecified; G89.29 Other chronic pain; D17.71 Benign lipomatous neoplasm of kidney; E11.9 Type 2 diabetes mellitus without complications; I10 Essential (primary) hypertension; E78.5 Hyperlipidemia, unspecified; G25.81 Restless legs syndrome; F90.9 Attention-deficit hyperactivity disorder, unspecified type; F41.9 Anxiety disorder, unspecified; F17.200 Nicotine dependence, unspecified, uncomplicated; Z56.0 Unemployment, unspecified; Z79.84 Long term (current) use of oral hypoglycemic drugs; Z79.85 Long-term (current) use of injectable non-insulin antidiabetic drugs; Z79.899 Other long term (current) drug therapy
CPT/HCPCS: 97161; 86900; 86901; 80048; 85027; 86850; 83036; 72100; 72131; 22633; 22853; 20930; 20936; G0378 ×2; C1713; C1762; C1734; J2250; J3370; J0330; J1100; J2710; J0690 ×2; J2405; J3010; J1170 ×3; J2704; J2001; J2371

== ENCOUNTER → 2023-07-18 | Outpatient (CLI) | payer OTHER ==
--- NOTE | 2023-07-18 11:33 | CTL ---
EXAMINATION TYPE: CT Low Dose Lung DATE OF EXAM ORDERED: 07/18/2023 HISTORY: Current smoker.. Lung cancer screening CT DLP: 118.[address] CTDI: 3.64 mGy Automated exposure control for dose reduction was used. SCREENING VISIT: Initial. COMPARISON: None available. TECHNIQUE: Low dose computed tomography scan was performed through the chest at 1 mm thick sections a nd reconstructed images in multiple planes at 1 mm and [address] DIAGNOSTIC QUALITY: Satisfactory FINDINGS: LUNG NODULES: There are no significant pulmonary nodules. LUNGS: COPD: Severity: None Fibrosis: Severity: There is an area of scarring within the right middle and right lower lobes which are likely related to the prior trauma with multiple rib fractures identified. These for fractures ap pear healed. Lymph nodes: No adenopathy. Other findings: RIGHT PLEURAL SPACE: Effusion: None Calcification: None Thickening: None Pneumothorax: None LEFT PLEURAL SPACE: Effusion: None Calcification: None Thickening: None Pneumothorax: None HEART: Heart Size: Normal Coronary Calcification: None Pericardial Effusion: None OTHER FINDINGS: Upper abdomen: None Bony thorax: Multiple healed right-sided rib fractures are seen. Supraclavicular region: None Other: None IMPRESSION: 1. Negative lung cancer screening examination for significant pulmonary nodules. Eccentric. Additiona l findings as above. CT LUNG RAD AND CT CHEST RECOMMENDATION: Lung-Rad 1 Negative: Continue annual screening with LDCT in 12 months.
== END | disposition home or self-care (01) ==
LOC: RADCTMAIN 09:04
PROVIDERS: ATTEND Family Medicine
DX: Z12.2 Encounter for screening for malignant neoplasm of respiratory organs (principal); Z87.891 Personal history of nicotine dependence
CPT/HCPCS: 71271